=== PATIENT | male | born 1965 | race Caucasian/White ===

== ENCOUNTER 2024-12-02 12:09 | Emergency (ER) | payer BC ==
--- OUTSIDE RECORDS SUMMARY | 2024-12-02 12:15 | XMS REPORT | Continuity of Care Document ---
Author Name Unknown Address [address] [facility] [place] [address] [facility] Address [address] [facility] [place] [address] Care Team Providers Care Online Communications Manager Name Role Phone DUSTIN ELIZALDE Primary Care Physician UnavailTUSHAR Barboza Attending Clinician UnavailMEI Valiente Attending Clinician Unavailmax Cat MD, Gustabo Palafox Attending Clinician Mei Leyva MD Attending Clinician [phone] Tushar Reeder MD Attending Clinician [phone] Israel Chambers MD Attending Clinician [phone] Pcp-Lab Attending Clinician Unavailable Magaly Rees MD Attending Clinician [phone] MAGALY REES Attending Clinician Unavailab samuel Doctor Unassigned, [place] Attending Clinician U navailable Pcp-Lab Attending Clinician Unavailable Tushar Reeder MD Attending Clinician [phone] GLO GOMEZ Attending Clinician UnavailYamil Dailey Attending Clinician UnavailGlo Justin MD Attending Clinician [phone] Misty Perez DPM Attending Clinician + MISTY PEREZ Attending Clinician Unava ilable Pathology Attending Clinician Unavailable PATHOLOGY Attending Clinician Unavailable HAILY MCKINLEY Attending Clinician Unavailable Haily Mckinley MD Attending Clinician Dustin Elizalde MD Attending Clinician Earl ADAMS, Erika Meza Attending Clinician ERIKA NICOLE Attending Clinician Unavail able Unknown, Attending Attending Clinician Unavailab Charisma Harrison MD Attending Clinician [phone] CHARISMA POZO Attending Clinician Unavailable MISHA GALDAMEZ Attending Clinician Un available TUSHAR REEDER Admitting Clinician Unavailab HAILY Giang Admitting Clinician Unavailable AMY ALMARAZ Admitting Clinician Unavailable Payers Payer Name Policy Type Policy Number Effective Date Expirati on Date Source [facility] [employer] [id number] 2017 00:00:00 Problems Condition Name Condition Details Condition Category Status Onset Date Resolution Date Last Treatment Date Treating Clinician Comments Source Alcoholic cirrhosis of liver without ascites Alcoholic cirrhosis of liver without ascites Disease Active 2021-08 00:00: 00 [facility] Hypertensi on, unspecifie d type Hypertensi on, unspecifie d type Disease Active 2020-08 00:00: 00 [facility] Anemia, unspecifie d type Anemia, unspecifie d type Disease Active 2020-08 00:00: 00 [facility] Primary hypertensi on Primary hypertensi on Disease Active 2020-08 00:00: 00 [facility] ACUTE ANEMIA, BULMARO (ACUTE KIDNEY INJURY) ACUTE ANEMIA, BULMARO (ACUTE KIDNEY INJURY) Active 04/12/2021 [facility] Diagnosis Active 04-12 00:00: 00 2021-05-05 21:54:00 Jill Villegas LOW HEMOGLOBIN LOW HEMOGLOBIN Active 04/12/2021 [facility] Diagnosis Active 04-12 00:00: 00 2021-04-12 13:43:00 Jill Villegas Anemia, unspecifie d Anemia, unspecifie d 04/21/2021 [facility] 2021-04-21 07:40:15 Jill Villegas ANEMIA, UNSPECIFIE D ANEMIA, UNSPECIFIE D Active [facility] Diagnosis Active 2021-05-05 21:54:00 Jill Villegas ACUTE KIDNEY FAILURE, UNSPECIFIE D ACUTE KIDNEY FAILURE, UNSPECIFIE D Active [facility] Active 2021-05-05 21:54:00 Jill Villegas History of cirrhosis History of cirrhosis Disease Resolve d 11-05 00:00: 00 2022-08-06 00:00:00 2022-08-06 14:56:33 [facility] Hepatic cirrhosis, unspecifie d hepatic cirrhosis type, unspecifie d whether ascites present Hepatic cirrhosis, unspecifie d hepatic cirrhosis type, unspecifie d whether ascites present Disease Resolve d 2020-08 2 00:00: 00 2021-11-05 00:00:00 2021-11-05 15:37:59 [facility] Allergies, Adverse Reactions, Alerts Allergy Name Allergy Type Status Severity Reaction(s) Onset Date Inactive Date Treating Clinician Comments Source No Known Medicati on Allergie s No Known Medicati on Allergie s Active Jill Villegas NO KNOWN ALLERGIE S Drug Class Active [facility] Social History Social Habit Start Date Stop Date Quantity Comments Source History of tobacco use 2018-07-21 00:00:00 Cigar Smoker [facility] History SDOH Alcohol Frequency [facility] History SDOH Alcohol Std Dr[facility] SDOH Alcohol Binge [facility] of Social function 2024-07-28 00:00:00 2024-07-28 00:00:00 [facility] Alcohol intake 2023-10-15 00:00:00 2023-10-15 00:00:00 3 /d [facility] Alcoholic beverage intake 2023-10-15 00:00:00 2023-10-15 00:00:00 3 /d [facility] Tobacco use and exposure 2023-07-29 00:00:00 2023-07-29 00:00:00 Smokeless tobacco non-user [facility] Exposure to SARS-CoV-2 (event) 2022-08-08 00:00:00 2022-08-18 08:49:00 Not sure [facility] Tobacco Comment 2022-08-06 00:00:00 2022-08-06 00:00:00 2 large cigars per day [facility] Alcohol Comment 2021-08-11 00:00:00 2021-08-11 00:00:00 used to drink 1-2 glasses of wine, then progressed to 3-4 glasses of bourbon [facility] Social History 2018-03-17 16:43:06 2018-03-17 16:43:06 [facility] Sex assigned at 1965 00:00:00 1965 00:00:00 [facility] Smoking Status Start Date Stop Date Source Ex-smoker 2023-07-29 00:00:00 2023-07-29 [facility] 2023-02-04 00:00:00 [facility] Medications Ordered Medication Name Filled Medication Name Start Date Stop Date Current Medication? Ordering Clinician Indication Dosage Frequency Signature (SIG) Comments Components Source PANTOPRAZOL E 40 mg EC tablet 10-12 00:00: 00 Yes [id number] 40mg TAKE 1 TABLET BY MOUTH IN THE MORNING AND IN THE EVENING [facility] ATORVASTATI N 10 mg tablet 08-17 00:00: 00 Yes [id number] TAKE 1 TABLET BY MOUTH EVERYDAY AT BEDTIME [facility] CARVEDILOL 3.125 mg tablet 2023-08 00:00: 00 Yes [id number] TAKE 1 TABLET BY MOUTH TWICE A DAY WITH MEALS [facility] codeine-gua ifenesin 10-100 mg/5 mL oral solution 2023-08 00:00: 00 08-19 05:59 :00 No 5mL Take 5 mL by mouth every 6 (six) hours as needed for Cough for up to 7 days. Indication s: cough [facility] pantoprazol e 40 mg EC tablet 2024-1 2-13 00:00: 00 10-12 00:00 :00 No [id number] 40mg Take 1 tablet by mouth in the morning. [facility] SPIRONOLACT ONE 25 mg tablet 8-13 00:00: 00 Yes [id number] TAKE 1/2 TABLET BY MOUTH IN THE MORNING [facility] atorvastati n 10 mg tablet 6-04 00:00: 00 08-17 00:00 :00 No [id number] TAKE 1 TABLET BY MOUTH EVERYDAY AT BEDTIME [facility] CARVEDILOL 3.125 mg tablet 6- 00:00: 00 08-15 00:00 :00 No [id number] TAKE 1 TABLET BY MOUTH TWICE A DAY WITH MEALS [facility] SPIRONOLACT ONE 25 mg tablet 4-05 00:00: 00 03-28 00:00 :00 No [id number] TAKE 1/2 TABLET BY MOUTH IN THE MORNING [facility] erythromyci n 5 mg/gram (0.5 %) ophthalmic ointment 3- 00:00: 00 01-27 00:00 :00 No [id number] 9102 .5[in_u s] Place 0.5 Inches in right eye 4 (four) times daily. [facility] pantoprazol e 40 mg EC tablet 2-15 00:00: 00 07-28 00:00 :00 No [id number] 40mg Take 1 tablet by mouth in the morning and 1 tablet in the evening. [facility] methylPREDN ISolone (MEDROL, JOSE LUIS,) 4 mg tablets 2022-08 00:00: 00 01-27 00:00 :00 No [id number] Take by mouth SEE-INSTRU CTIONS. follow package directions [facility] CARVEDILOL 3.125 mg tablet 2022-08 1- 00:00: 00 01-16 00:00 :00 No [id number] TAKE 1 TABLET BY MOUTH TWICE A DAY WITH MEALS [facility] SPIRONOLACT ONE 25 mg tablet 2022-08 00:00: 00 11-18 00:00 :00 No [id number] TAKE 1/2 TABLET BY MOUTH IN THE MORNING [facility] ciclopirox 8 % solution 02-05 00:00: 00 01-27 00:00 :00 No [id number] Apply to fungal toenails once daily. Every 7 days please file toenails with nail file and apply rubbing alcohol. [facility] SPIRONOLACT ONE 25 mg tablet 02-01 00:00: 00 06-14 00:00 :00 No [id number] TAKE 1/2 TABLET BY MOUTH IN THE MORNING [facility] atorvastati n 10 mg tablet 01-05 00:00: 00 01-17 00:00 :00 No [id number] TAKE 1 TABLET BY MOUTH EVERYDAY AT BEDTIME [facility] CARVEDILOL 3.125 mg tablet 01-05 00:00: 00 07-14 00:00 :00 No [id number] TAKE 1 TABLET BY MOUTH TWICE A DAY WITH MEALS [facility] methylPREDN ISolone (MEDROL, JOSE LUIS,) 4 mg tablets 2021-08 00:00: 00 02-04 00:00 :00 No [id number] Take by mouth SEE-INSTRU CTIONS. follow package directions [facility] spironolact one 25 mg tablet 2021-08 00:00: 00 02-01 00:00 :00 No [id number] 12.5mg Take 0.5 tablets by mouth in the morning. [facility] ATORVASTATI N 10 mg tablet 2021-08 00:00: 00 01-05 00:00 :00 No [id number] TAKE 1 TABLET BY MOUTH EVERYDAY AT BEDTIME [facility] CARVEDILOL 3.125 mg tablet 2021-08 00:00: 00 01-05 00:00 :00 No [id number] TAKE 1 TABLET BY MOUTH TWICE A DAY WITH MEALS [facility] spironolact one 25 mg tablet 9- 00:00: 00 08-06 00:00 :00 No [id number] 9100 12.5mg Take 0.5 tablets by mouth in the morning. [facility] carvediloL (COREG) 3.125 mg tablet 12-04 00:00: 00 06-22 00:00 :00 No [id number] 3.125mg Take 1 tablet by mouth 2 (two) times daily with meals. [facility] atorvastati n 10 mg tablet 12-04 00:00: 00 06-22 00:00 :00 No [id number] 10mg Take 1 tablet by mouth at bedtime. [facility] ferrous sulfate (IRON) 325 mg (65 mg iron) tablet 08-23 00:00: 00 11-05 00:00 :00 No [id number] 325mg Take 1 tablet by mouth every Wednesday, and Wednesday. [facility] ferrous sulfate (IRON) 325 mg (65 mg iron) tablet 2020-08 2 00:00: 00 Yes [id number] 325mg Take 1 tablet by mouth every Wednesday, and Wednesday. [facility] pantoprazol e 40 mg EC tablet 2020-08 0-27 00:00: 00 09-30 00:00 :00 No [id number] 40mg Take 40 mg by mouth 2 (two) times daily. [facility] atorvastati n 10 mg tablet 2020-08 0-02 00:00: 00 12-04 00:00 :00 No [id number] 10mg Take 10 mg by mouth daily. [facility] carvedilol 3.13 MG Oral Tablet [Coreg] 04-15 18:24: 00 Yes 3.125 mg = 1 tab, PO, BID, # 60 tab, 0 Refill(s) Jill Villegas Ciprofloxac in 250 MG Oral Tablet [Cipro] 04-15 18:23: 00 No 250 mg = 1 tab, PO, Q12H, X 5 day, # 10 tab, 0 Refill(s) Finnkandace mo Villegas pantoprazol e 40 mg oral enteric coated tablet 04-15 18:22: 00 Yes 40 mg = 1 tab, PO, BID, # 60 tab, 1 Refill(s) Finnkandace mo Villegas carvedilol 04-14 02:00: 00 No Notes: Give with food. (Same As: Coreg) Jill Villegas Lipitor 04-14 02:00: 00 No Notes: (Same As: Lipitor) Jill Villegas Oxymetazoli ne hydrochlori de 0.5 MG/ML Nasal [place] [Afrin] 04-13 21:14: 00 No Notes: (Same as: Afrin) Jill Villegas Sodium Chloride 0.9% IV 1000 mL 04-13 17:57: 00 No 1,000 mL, Rate: 75 ml/hr, Infuse over: 13.3 hr, Route: IV, Dosing Weight 82.869 kg, Total Volume: 1,000, Start date: 04/13/21 12:57:00 CDT, Duration: 30 day, Stop date: 05/13/21 12:56:00 CDT, BSA: 2.01 m2 Finnkandace mo Villegas pantoprazol e 04-13 17:37: 00 No Notes: Tablet should not be chewed or crushed. (Same as: Protonix) Jill Villegas Thiamine 04-13 14:00: 00 No Notes: (Same As: Vitamin B1) Jill Villegas Folic Acid 04-13 14:00: 00 No Notes: (Same as: Folvite) Jill Villegas vancomycin + Sodium Chloride 0.9% IV 500 mL 04-13 09:00: 00 No 2001 mg: infuse over 2.5 hours For adult patients only: Round to nearest 250 mg per Medical Staff approval MEDICATION WASTE Product Size: 1000 mg Product Wasted: ___ mg Jill Villegas cefepime 04-13 04:00: 00 No Notes: (Same As: Maxipime) MEDICATION WASTE Product Size: 1000 mg Product Wasted: ___ mg Jill Villegas Vancomycin 04-13 04:00: 00 No 1,500 mg, Route: IVPB, Drug form: INJ, DTOS13G, Dosing Weight 82.869, kg, Start date: 04/12/21 23:00:00 CDT, Duration: 5 day, Stop date: 04/17/21 11:00:00 CDT, ABX Indication : ED - Suspected Sepsis Jill Villegas Vancomycin 04-13 03:26: 20 No Notes: Vancomycin Pharmacy Dosing Protocol PHARMAC Y USE ONLY Note: This is not a medication order. This is a consultati on order. Jill Villegas Tylenol 04-13 03:09: 00 No Notes: Max acetaminop hen = 4000mg/day (4 gm/day). (Same as: Tylenol) Jill Villegas metoprolol succinate 25 mg oral capsule, extended release 04-13 00:40: 00 No 25 mg = 1 cap, PO, Daily, 0 Refill(s) Jill Villegas Docusate 04-12 22:00: 00 No Notes: (Same as: Colace) (Do Not Crush) Jill Villegas normal saline 0.9% IV 1,000 mL 04-12 20:48: 00 No 1,000 mL, Rate: 55 ml/hr, Infuse over: 18.2 hr, Route: IV, Dosing Weight 79.545 kg, Total Volume: 1,000, Start date: 04/12/21 15:48:00 CDT, Duration: 30 day, Stop date: 05/12/21 15:47:00 CDT, BSA: 1.99 m2, 0 Jill Villegas Dextrose 50% Syringe (D50W) 04-12 20:45: 00 No 12.5 gm, 25 mL, Route: IVP, Drug Form: INJ, Dosing Weight 79.545, kg, PRN, PRN Blood Glucose Results, Start date: 04/12/21 15:45:00 CDT, Duration: 30 day, Stop date: 05/12/21 15:44:00 CDT, 0 Jill Villegas Glucagon 04-12 20:45: 00 No 1 mg, Route: IM, Drug form: PDR/INJ, PRN, Dosing Weight 79.545, kg, PRN Blood Glucose Results, Start date: 04/12/21 15:45:00 CDT, Duration: 30 day, Stop date: 05/12/21 15:44:00 CDT, 0 Jill Villegas Ondansetron 04-12 20:45: 00 No Notes: (Same as: Zofran) MEDICATION WASTE Product Size: 4 mg Product Wasted: ___ mg Jill Villegas Melatonin 04-12 20:45: 00 No Notes: (Same as: Melatonin) Jill Villegas Potassium Chloride 04-12 20:45: 00 No Notes: (Same as: K-Dur 20) "Do Not Crush" Give with food and full glass of water For patients unable to swallow tablet, dissolve in one half glass of water. Allow about 2 minutes for the tablets to disintegra te. Stir before giving to prepare slurry and administer . Please exclude Patient s with feeding tube less than 14 [place] (Dobhoff, J-tube etc) and pediatric and patients. Jill Villegas potassium phosphate-s odium phosphate 250 mg-280 mg-160 mg oral powder for reconstitut ion 04-12 20:45: 00 No Notes: (Same as: Phos-NaK) Each 1.5 gm pkt has 250mg phosphorou s. Mix w/2.5oz water and stir. Memkandace hassan [place] potassium phosphate 04-12 20:45: 00 No Notes: (Same as: K Phosphate. ) Do not infuse phosphorou s concurrent ly in the same line as TPN or IVF that contains calcium. For double lumen central lines, phosphorou s may be infused in a separate lumen from TPN. 1 mMol phoshate has 1.47 mEq potassium Infuse over 4 hours Memkandace mo Bakari sodium phosphate 04-12 20:45: 00 No Notes: Infuse over 4 hour. Do not infuse phosphorou s concurrent ly in the same line as TPN or IVF that contains calcium. For double lumen central lines, phosphorou s may be infused in a separate lumen from TPN. Finnkandace Villegas Magnesium Sulfate 04-12 20:45: 00 No Notes: WASTE: F/P - Sink; E - Municipal Trash Bin Jill Villegas Magnesium Oxide 04-12 20:45: 00 No Notes: (Same as: Mag-Ox 400) Magnesium oxide [id number] g elemental magnesium Dose=____m g magnesium oxide (___mg elemental magnesium) Jill Villegas Calcium Gluconate 04-12 20:45: 00 No Notes: WASTE: F/P - Sink; E - Municipal Trash Bin Jill Villegas Sodium Chloride 0.9% (titrate) 250 mL 04-12 19:23: 00 No 250 mL, Rate: To prime line and flush remaining blood products., Dosing Weight 79.545, kg, Route: IV, Total Volume: 250, Start Date: 04/12/21 14:23:00 CDT, Duration: 1 day, Stop date: 04/13/21 14:22:00 CDT, Replace Every: 24 hr, 0 Jill Villegas carvediloL (COREG) 3.125 mg tablet 03-22 00:00: 00 Yes [id number] [facility] Hydrochloro thiazide 25 MG Oral Tablet 03-31 15:53: 00 Yes 25 mg = 1 tab, PO, Daily, # 30 tab, 1 Refill(s) Jill Villegas atorvastati n 10 MG Oral Tablet [Lipitor] 03-31 15:49: 00 Yes 10 mg = 1 tab, PO, Bedtime, # 90 tab, 0 Refill(s) Jill Villegas Hydrocortis one 0.025 MG/MG Topical Ointment 03-17 14:49: 00 No 1 appl, TOP, TID, X 14 day, # 60 gm, 1 Refill(s) Jill Villegas Vitamin D3 10,000 intl units oral capsule 03-17 14:19: 00 Yes 10,000 IntlUnit = 1 cap, PO, 0 Refill(s) Jill Villegas Claritin 03-17 14:19: 00 Yes 10 mg = 1 tab, PO, Daily, PRN Itching / rash / allergy symptoms, # 14 tab, 0 Refill(s) Jill Villegas Prilosec 03-17 14:19: 00 Yes PO, Daily, 0 Refill(s) Jill Villegas Aspirin 81 MG Enteric Coated Tablet 03-17 14:19: 00 Yes 81 mg = 1 tab, PO, Daily, # 90 tab, 3 Refill(s) Jill Villegas hydrocortis one 2.5 % cream 2015-08 00:00: 00 02-04 00:00 :00 No [facility] Immunizations Ordered Immunization Name Filled Immunization Name Date Status Comments Source Flu Injectable MDCK Pres-Free (FLUCELVAX) 2024-07-28 00:00:00 Completed [facility] Influenza Virus Vaccine Quad IM, Preserv and ABX Free 6 MO-64 YRS (FLUCELVAX) 2023-07-29 00:00:00 Completed [facility] Zoster Vaccine Recombinant 2023-02-04 00:00:00 Completed [facility] Zoster Vaccine Recombinant 2023-02-04 00:00:00 Completed [facility] Zoster Vaccine Recombinant 2023-02-04 00:00:00 Completed [facility] Zoster Vaccine Recombinant 2022-08-06 00:00:00 Completed [facility] Zoster Vaccine Recombinant 2022-08-06 00:00:00 Completed [facility] Zoster Vaccine Recombinant 2022-08-06 00:00:00 Completed [facility] Zoster Vaccine Recombinant 2022-08-06 00:00:00 Completed [facility] Zoster Vaccine Recombinant 2022-08-06 00:00:00 Completed [facility] Zoster Vaccine Recombinant 2022-08-06 00:00:00 Completed [facility] Zoster Vaccine Recombinant 2022-08-06 00:00:00 Completed [facility] Zoster Vaccine Recombinant 2022-08-06 00:00:00 Completed [facility] Zoster Vaccine Recombinant 2022-08-06 00:00:00 Completed [facility] Pneumococcal 20 Conjugate, PCV20 (Prevnar 20) 2022-05-06 00:00:00 Completed [facility] Influenza Virus Vaccine Quad IM, Preserv and ABX Free 6 MO-64 YRS 2022-05-06 00:00:00 Completed [facility] Pneumococcal 20 Conjugate, PCV20 (Prevnar 20) 2022-05-06 00:00:00 Completed [facility] Influenza Virus Vaccine Quad IM, Preserv and ABX Free 6 MO-64 YRS 2022-05-06 00:00:00 Completed [facility] Pneumococcal 20 Conjugate, PCV20 (Prevnar 20) 2022-05-06 00:00:00 Completed [facility] Influenza Virus Vaccine Quad IM, Preserv and ABX Free 6 MO-64 YRS 2022-05-06 00:00:00 Completed [facility] Pneumococcal 20 Conjugate, PCV20 (Prevnar 20) 2022-05-06 00:00:00 Completed [facility] Influenza Virus Vaccine Quad IM, Preserv and ABX Free 6 MO-64 YRS 2022-05-06 00:00:00 Completed [facility] Pneumococcal 20 Conjugate, PCV20 (Prevnar 20) 2022-05-06 00:00:00 Completed [facility] Influenza Virus Vaccine Quad IM, Preserv and ABX Free 6 MO-64 YRS 2022-05-06 00:00:00 Completed [facility] Pneumococcal 20 Conjugate, PCV20 (Prevnar 20) 2022-05-06 00:00:00 Completed [facility] Influenza Virus Vaccine Quad IM, Preserv and ABX Free 6 MO-64 YRS 2022-05-06 00:00:00 Completed [facility] Pneumococcal 20 Conjugate, PCV20 (Prevnar 20) 2022-05-06 00:00:00 Completed [facility] Influenza Virus Vaccine Quad IM, Preserv and ABX Free 6 MO-64 YRS 2022-05-06 00:00:00 Completed [facility] Pneumococcal 20 Conjugate, PCV20 (Prevnar 20) 2022-05-06 00:00:00 Completed [facility] Influenza Virus Vaccine Quad IM, Preserv and ABX Free 6 MO-64 YRS 2022-05-06 00:00:00 Completed [facility] Pneumococcal 20 Conjugate, PCV20 (Prevnar 20) 2022-05-06 00:00:00 Completed [facility] Influenza Virus Vaccine Quad IM, Preserv and ABX Free 6 MO-64 YRS 2022-05-06 00:00:00 Completed [facility] Pneumococcal 20 Conjugate, PCV20 (Prevnar 20) 2022-05-06 00:00:00 Completed [facility] Influenza Virus Vaccine Quad IM, Preserv and ABX Free 6 MO-64 YRS 2022-05-06 00:00:00 Completed [facility] Pneumococcal 20 Conjugate, PCV20 (Prevnar 20) 2022-05-06 00:00:00 Completed [facility] Influenza Virus Vaccine Quad IM, Preserv and ABX Free 6 MO-64 YRS 2022-05-06 00:00:00 Completed [facility] Pneumococcal 20 Conjugate, PCV20 (Prevnar 20) 2022-05-06 00:00:00 Completed Influenza Virus Vaccine Quad IM, Preserv and ABX Free 6 MO-64 YRS (FLUCELVAX) 2022-05-06 00:00:00 Completed TDAP 2021-08-11 00:00:00 Completed [facility] TDAP 2021-08-11 00:00:00 Completed [facility] TDAP 2021-08-11 00:00:00 Completed [facility] TDAP 2021-08-11 00:00:00 Completed [facility] TDAP 2021-08-11 00:00:00 Completed [facility] TDAP 2021-08-11 00:00:00 Completed [facility] TDAP 2021-08-11 00:00:00 Completed [facility] TDAP 2021-08-11 00:00:00 Completed [facility] TDAP 2021-08-11 00:00:00 Completed [facility] TDAP 2021-08-11 00:00:00 Completed [facility] TDAP 2021-08-11 00:00:00 Completed [facility] TDAP 2021-08-11 00:00:00 Completed [facility] TDAP 2021-08-11 00:00:00 Completed [facility] TDAP 2021-08-11 00:00:00 Completed [facility] TDAP 2021-08-11 00:00:00 Completed [facility] TDAP 2021-08-11 00:00:00 Completed [facility] TDAP 2021-08-11 00:00:00 [facility]pleted [facility] [facility] TDAP 2021-08-11 00:00:00 Completed [facility] TDAP 2021-08-11 00:00:00 Completed [facility] Influenza Virus Vaccine 2021-06-17 00:00:00 Completed [facility] Influenza Virus Vaccine 2021-06-17 00:00:00 Completed [facility] Influenza Virus Vaccine 2021-06-17 00:00:00 Completed [facility] Influenza Virus Vaccine 2021-06-17 00:00:00 Completed [facility] Influenza Virus Vaccine 2021-06-17 00:00:00 Completed [facility] Influenza Virus Vaccine 2021-06-17 00:00:00 Completed [facility] Influenza Virus Vaccine 2021-06-17 00:00:00 Completed [facility] Influenza Virus Vaccine 2021-06-17 00:00:00 Completed [facility] Influenza Virus Vaccine 2021-06-17 00:00:00 Completed [facility] Influenza Virus Vaccine 2021-06-17 00:00:00 Completed [facility] Influenza Virus Vaccine 2021-06-17 00:00:00 Completed [facility] Influenza Virus Vaccine 2021-06-17 00:00:00 Completed [facility] Influenza Virus Vaccine 2021-06-17 00:00:00 Completed [facility] Influenza Virus Vaccine 2021-06-17 00:00:00 Completed [facility] Influenza Virus Vaccine 2021-06-17 00:00:00 Completed [facility] Influenza Virus Vaccine 2021-06-17 00:00:00 Completed [facility] Influenza Virus Vaccine 2021-06-17 00:00:00 Completed [facility] Influenza Virus Vaccine 2021-06-17 00:00:00 Completed [facility] Influenza Virus Vaccine 2021-06-17 00:00:00 Completed [facility] Influenza Virus Vaccine Unknown Completed [facility] TDAP Unknown Completed [facility] Pneumococcal 20 Conjugate, PCV20 (Prevnar 20) Unknown Completed [facility] Influenza Virus Vaccine Quad IM, Preserv and ABX Free 6 MO-64 YRS (FLUCELVAX) Unknown Completed [facility] Zoster Vaccine Recombinant Unknown Completed [facility] Influenza Virus Vaccine Unknown Completed [facility] TDAP Unknown Completed [facility] Pneumococcal 20 Conjugate, PCV20 (Prevnar 20) Unknown Completed [facility] Influenza Virus Vaccine Quad IM, Preserv and ABX Free 6 MO-64 YRS (FLUCELVAX) Unknown Completed [facility] Zoster Vaccine Recombinant Unknown Completed [facility] Influenza Virus Vaccine Unknown Completed [facility] TDAP Unknown Completed [facility] Pneumococcal 20 Conjugate, PCV20 (Prevnar 20) Unknown Completed [facility] Influenza Virus Vaccine Quad IM, Preserv and ABX Free 6 MO-64 YRS (FLUCELVAX) Unknown Completed [facility] Zoster Vaccine Recombinant Unknown Completed [facility] Influenza Virus Vaccine Unknown Completed [facility] TDAP Unknown Completed [facility] Pneumococcal 20 Conjugate, PCV20 (Prevnar 20) Unknown Completed [facility] Influenza Virus Vaccine Quad IM, Preserv and ABX Free 6 MO-64 YRS (FLUCELVAX) Unknown Completed [facility] Influenza Virus Vaccine Unknown Completed [facility] TDAP Unknown Completed [facility] Pneumococcal 20 Conjugate, PCV20 (Prevnar 20) Unknown Completed [facility] Influenza Virus Vaccine Quad IM, Preserv and ABX Free 6 MO-64 YRS (FLUCELVAX) Unknown Completed [facility] Zoster Vaccine Recombinant Unknown Completed [facility] Influenza Virus Vaccine Unknown Completed [facility] TDAP Unknown Completed [facility] Pneumococcal 20 Conjugate, PCV20 (Prevnar 20) Unknown Completed [facility] Influenza Virus Vaccine Quad IM, Preserv and ABX Free 6 MO-64 YRS (FLUCELVAX) Unknown Completed [facility] Zoster Vaccine Recombinant Unknown Completed [facility] Influenza Virus Vaccine Unknown Completed [facility] TDAP Unknown Completed [facility] Pneumococcal 20 Conjugate, PCV20 (Prevnar 20) Unknown Completed [facility] Influenza Virus Vaccine Quad IM, Preserv and ABX Free 6 MO-64 YRS (FLUCELVAX) Unknown Completed [facility] Zoster Vaccine Recombinant Unknown Completed [facility] Influenza Virus Vaccine Unknown Completed [facility] TDAP Unknown Completed [facility] Pneumococcal 20 Conjugate, PCV20 (Prevnar 20) Unknown Completed [facility] Influenza Virus Vaccine Quad IM, Preserv and ABX Free 6 MO-64 YRS (FLUCELVAX) Unknown Completed [facility] Zoster Vaccine Recombinant Unknown Completed [facility] Influenza Virus Vaccine Unknown Completed [facility] TDAP Unknown Completed [facility] Pneumococcal 20 Conjugate, PCV20 (Prevnar 20) Unknown Completed [facility] Influenza Virus Vaccine Quad IM, Preserv and ABX Free 6 MO-64 YRS (FLUCELVAX) Unknown Completed [facility] Zoster Vaccine Recombinant Unknown Completed [facility] Influenza Virus Vaccine Unknown Completed [facility] TDAP Unknown Completed [facility] Pneumococcal 20 Conjugate, PCV20 (Prevnar 20) Unknown Completed [facility] Influenza Virus Vaccine Quad IM, Preserv and ABX Free 6 MO-64 YRS (FLUCELVAX) Unknown Completed [facility] Zoster Vaccine Recombinant Unknown Completed [facility] Influenza Virus Vaccine Unknown Completed [facility] TDAP Unknown Completed [facility] Pneumococcal 20 Conjugate, PCV20 (Prevnar 20) Unknown Completed [facility] Influenza Virus Vaccine Quad IM, Preserv and ABX Free 6 MO-64 YRS (FLUCELVAX) Unknown Completed [facility] Zoster Vaccine Recombinant Unknown Completed [facility] Influenza Virus Vaccine Unknown Completed [facility] TDAP Unknown Completed [facility] Pneumococcal 20 Conjugate, PCV20 (Prevnar 20) Unknown Completed [facility] Influenza Virus Vaccine Quad IM, Preserv and ABX Free 6 MO-64 YRS (FLUCELVAX) Unknown Completed [facility] Zoster Vaccine Recombinant Unknown Completed [facility] Influenza Virus Vaccine Unknown Completed [facility] TDAP Unknown Completed [facility] Pneumococcal 20 Conjugate, PCV20 (Prevnar 20) Unknown Completed [facility] Influenza Virus Vaccine Quad IM, Preserv and ABX Free 6 MO-64 YRS (FLUCELVAX) Unknown Completed [facility] Zoster Vaccine Recombinant Unknown Completed [facility] Influenza Virus Vaccine Unknown Completed [facility] TDAP Unknown Completed [facility] Pneumococcal 20 Conjugate, PCV20 (Prevnar 20) Unknown Completed [facility] Influenza Virus Vaccine Quad IM, Preserv and ABX Free 6 MO-64 YRS (FLUCELVAX) Unknown Completed [facility] Zoster Vaccine Recombinant Unknown Completed [facility] Influenza Virus Vaccine Unknown Completed [facility] TDAP Unknown Completed [facility] Pneumococcal 20 Conjugate, PCV20 (Prevnar 20) Unknown Completed [facility] Influenza Virus Vaccine Quad IM, Preserv and ABX Free 6 MO-64 YRS (FLUCELVAX) Unknown Completed [facility] Zoster Vaccine Recombinant Unknown Completed [facility] Influenza Virus Vaccine Unknown Completed [facility] TDAP Unknown Completed [facility] Pneumococcal 20 Conjugate, PCV20 (Prevnar 20) Unknown Completed [facility] Influenza Virus Vaccine Quad IM, Preserv and ABX Free 6 MO-64 YRS (FLUCELVAX) Unknown Completed [facility] Zoster Vaccine Recombinant Unknown Completed [facility] Influenza Virus Vaccine Unknown Completed [facility] TDAP Unknown Completed [facility] Pneumococcal 20 Conjugate, PCV20 (Prevnar 20) Unknown Completed [facility] Influenza Virus Vaccine Quad IM, Preserv and ABX Free 6 MO-64 YRS (FLUCELVAX) Unknown Completed [facility] Zoster Vaccine Recombinant Unknown Completed [facility] Influenza Virus Vaccine Unknown Completed [facility] TDAP Unknown Completed [facility] Pneumococcal 20 Conjugate, PCV20 (Prevnar 20) Unknown Completed [facility] Influenza Virus Vaccine Quad IM, Preserv and ABX Free 6 MO-64 YRS (FLUCELVAX) Unknown Completed [facility] Zoster Vaccine Recombinant Unknown Completed [facility] Influenza Virus Vaccine Unknown Completed [facility] TDAP Unknown Completed [facility] Pneumococcal 20 Conjugate, PCV20 (Prevnar 20) Unknown Completed [facility] Influenza Virus Vaccine Quad IM, Preserv and ABX Free 6 MO-64 YRS (FLUCELVAX) Unknown Completed [facility] Zoster Vaccine Recombinant Unknown Completed [facility] Influenza Virus Vaccine Unknown Completed [facility] TDAP Unknown Completed [facility] Pneumococcal 20 Conjugate, PCV20 (Prevnar 20) Unknown Completed [facility] Influenza Virus Vaccine Quad IM, Preserv and ABX Free 6 MO-64 YRS (FLUCELVAX) Unknown Completed [facility] Zoster Vaccine Recombinant Unknown Completed [facility] Influenza Virus Vaccine Unknown Completed [facility] TDAP Unknown Completed [facility] Pneumococcal 20 Conjugate, PCV20 (Prevnar 20) Unknown Completed [facility] Influenza Virus Vaccine Quad IM, Preserv and ABX Free 6 MO-64 YRS (FLUCELVAX) Unknown Completed [facility] Zoster Vaccine Recombinant Unknown Completed [facility] Influenza Virus Vaccine Unknown Completed [facility] TDAP Unknown Completed [facility] Pneumococcal 20 Conjugate, PCV20 (Prevnar 20) Unknown Completed [facility] Influenza Virus Vaccine Quad IM, Preserv and ABX Free 6 MO-64 YRS (FLUCELVAX) Unknown Completed [facility] Zoster Vaccine Recombinant Unknown Completed [facility] Vital Signs Vital Name Observation Time Observation Value Comments S ource Systolic blood pressure 2024-11-24 21:01:00 117 mm[Hg] [facility] Diastolic blood pressure 2024-11-24 21:01:00 74 mm[Hg] [facility] Heart rate 2024-11-24 21:00:00 71 /min [facility] Body temperature 2024-11-24 21:00:00 36.5 Ivania [facility] Body height 2024-11-24 21:00:[address] [facility] Body weight 2024-11-24 21:00:[address] [facility] BMI 2024-11-24 21:00:00 28.59 kg/m2 [facility] Oxygen saturation in Arterial blood by Pulse oximetry 2024-11-24 21:00:00 95 /min [facility] Systolic blood pressure 2024-08-11 17:03:00 105 mm[Hg] [facility] Diastolic blood pressure 2024-08-11 17:03:00 67 mm[Hg] [facility] Heart rate 2024-08-11 17:03:00 78 [facility] Body temperature 2024-08-11 17:03:00 37.28 Ivania [facility] Body height 2024-08-11 17:03:[address] [facility] Body weight 2024-08-11 17:03:[address] [facility] BMI 2024-08-11 17:03:00 27.37 kg/m2 [facility] Oxygen saturation in Arterial blood by Pulse oximetry 2024-08-11 17:03:00 94 /min [facility] Systolic blood pressure 2024-07-28 15:33:00 126 mm[Hg] [facility] Diastolic blood pressure 2024-07-28 15:33:00 63 mm[Hg] [facility] Heart rate 2024-07-28 15:32:00 70 /min [facility] Body temperature 2024-07-28 15:32:00 36.39 Ivania [facility] Body height 2024-07-28 15:32:[address] [facility] Body weight 2024-07-28 15:32:[address] [facility] BMI 2024-07-28 15:32:00 28.13 kg/m2 [facility] Oxygen saturation in Arterial blood by Pulse oximetry 2024-07-28 15:32:00 97 /min [facility] Systolic blood pressure 2024-01-28 15:05:00 111 mm[Hg] [facility] Diastolic blood pressure 2024-01-28 15:05:00 55 mm[Hg] [facility] Heart rate 2024-01-28 15:05:00 62 /min [facility] Body temperature 2024-01-28 15:05:00 36.39 Ivania [facility] Body height 2024-01-28 15:05:00 172.7 cm [facility] Body weight 2024-01-28 15:05:[address] [facility] BMI 2024-01-28 15:05:00 26.46 kg/m2 [facility] Oxygen saturation in Arterial blood by Pulse oximetry 2024-01-28 15:05:00 96 /min [facility] Systolic blood pressure 2023-10-15 19:03:00 133 mm[Hg] [facility] Diastolic blood pressure 2023-10-15 19:03:00 63 mm[Hg] [facility] Heart rate 2023-10-15 19:03:00 63 /[facility] 2023-10-15 19:03:00 36.56 Ivania [facility] Respiratory rate 2023-10-15 19:03:00 16 /min [facility] Body height 2023-10-15 19:03:00 172.7 cm [facility] Body weight 2023-10-15 19:03:00 83.462 kg [facility] BMI 2023-10-15 19:03:00 27.98 kg/m2 [facility] Oxygen saturation in Arterial blood by Pulse oximetry 2023-10-15 19:03:00 100 /min Room air [facility] Systolic blood pressure 2023-07-29 16:42:00 117 mm[Hg] [facility] Diastolic blood pressure 2023-07-29 16:42:00 63 mm[Hg] [facility] Heart rate 2023-07-29 16:42:00 70 /min [facility] Body height 2023-07-29 16:42:00 172.7 cm [facility] Body weight 2023-07-29 16:42:[address] [facility] BMI 2023-07-29 16:42:00 27.22 kg/m2 [facility] Oxygen saturation in Arterial blood by Pulse oximetry 2023-07-29 16:42:00 100 /min [facility] Body temperature 2023-05-14 17:07:00 36.83 Ivania [facility] Body height 2023-05-14 17:07:00 [facility]7 [facility] Body weight 2023-05-14 17:07:00 80.74 kg [facility] BMI 2023-05-14 17:07:00 27.06 kg/m2 [facility] Body temperature 2023-02-05 14:58:00 37.22 Ivania [facility] Body weight 2023-02-05 14:58:00 76.522 kg [facility] BMI 2023-02-05 14:58:00 25.65 kg/m2 [facility] Systolic blood pressure 2023-02-04 16:37:00 125 mm[Hg] [facility] Diastolic blood pressure 2023-02-04 16:37:00 65 mm[Hg] [facility] Heart rate 2023-02-04 16:36:00 70 /min [facility] Body temperature 2023-02-04 16:36:00 36.44 Ivania [facility] Respiratory rate 2023-02-04 16:36:00 18 /min [facility] Body height 2023-02-04 16:36:00 172.7 cm [facility] Body weight 2023-02-04 16:36:[address] [facility] BMI 2023-02-04 16:36:00 25.54 kg/m2 [facility] Oxygen saturation in Arterial blood by Pulse oximetry 2023-02-04 16:36:00 100 /min room air [facility] Systolic blood pressure 2022-08-06 20:48:00 138 mm[Hg] [facility] Diastolic blood pressure 2022-08-06 20:48:00 77 mm[Hg] [facility] Heart rate 2022-08-06 20:48:00 71 /[facility] Body temperature 2022-08-06 20:48:00 36.72 Ivania [facility] Respiratory rate 2022-08-06 20:48:00 18 /min [facility] Body height 2022-08-06 20:48:00 172.7 cm [facility] Body weight 2022-08-06 20:48:[address] [facility] BMI 2022-08-06 20:48:00 27.92 kg/m2 [facility] Oxygen saturation in Arterial blood by Pulse oximetry 2022-08-06 20:48:00 98 /min room air [facility] Systolic blood pressure 2022-05-06 20:24:00 133 mm[Hg] [facility] Diastolic blood pressure 2022-05-06 20:24:00 65 mm[Hg] [facility] Heart rate 2022-05-06 20:24:00 65 /min [facility] Body temperature 2022-05-06 20:24:00 36.22 Ivania [facility] Respiratory rate 2022-05-06 20:24:00 16 /min [facility] Body height 2022-05-06 20:24:[address] [facility] Body weight 2022-05-06 20:24:[address] [facility] BMI 2022-05-06 20:24:00 26.15 kg/m2 [facility] Oxygen saturation in Arterial blood by Pulse oximetry 2022-05-06 20:24:00 99 /min [facility] Systolic blood pressure 2021-11-05 20:30:00 137 mm[Hg] [facility] Diastolic blood pressure 2021-11-05 20:30:00 75 mm[Hg] [facility] Heart rate 2021-11-05 20:28:00 69 /min [facility] Body temperature 2021-11-05 20:28:00 37.17 Ivania [facility] Respiratory rate 2021-11-05 20:28:00 20 /min [facility] Body height 2021-11-05 20:28:[address] [facility] Body weight 2021-11-05 20:28:[address] [facility] BMI 2021-11-05 20:28:00 26.18 kg/m2 [facility] Oxygen saturation in Arterial blood by Pulse oximetry 2021-11-05 20:28:00 99 /min room air [facility] Systolic blood pressure 2021-08-11 15:13:00 138 mm[Hg] [facility] Diastolic blood pressure 2021-08-11 15:13:00 81 mm[Hg] [facility] Heart rate 2021-08-11 15:13:00 77 /min [facility] Body temperature 2021-08-11 15:13:00 36.72 Ivania [facility] Respiratory rate 2021-08-11 15:13:00 18 /min [facility] Body height 2021-08-11 15:13:[address] [facility] Body weight 2021-08-11 15:13:[address] [facility] BMI 2021-08-11 15:13:00 25.38 kg/m2 [facility] Oxygen saturation in Arterial blood by Pulse oximetry 2021-08-11 15:13:00 98 /min [facility] Heart Rate 2021-04-15 16:53:15 [facility] Systolic (mm Hg) 2021-04-15 16:53:10 [facility] Diastolic (mm Hg) 2021-04-15 16:53:10 [facility] Heart Rate 2021-04-15 16:53:10 [facility] Heart Rate 2021-04-15 13:44:41 [facility] Respitory Rate 2021-04-15 13:44:41 [facility] Systolic (mm Hg) 2021-04-15 13:43:59 [facility] Diastolic (mm Hg) 2021-04-15 13:43:59 [facility] [facility] Temperature Oral (F) 2021-04-15 13:43:30 98.2 F [facility] Temperature Oral (F) 2021-04-15 10:31:00 98.9 F [facility] [place] Systolic (mm Hg) 2021-04-15 10:31:00 [facility] [place] Diastolic (mm Hg) 2021-04-15 10:31:00 [facility] Temperature Oral (F) 2021-04-15 04:36:10 100.1 F [facility] [place] Respitory Rate 2021-04-14 20:44:11 [facility] [place] Heart Rate 2021-04-14 08:50:33 [facility] Systolic (mm Hg) 2021-04-14 08:50:19 [facility] [place] Diastolic (mm Hg) 2021-04-14 08:50:19 [facility] Heart Rate 2021-04-14 08:50:19 [facility] Temperature Oral (F) 2021-04-14 08:50:09 98.4 F [facility] Temperature Oral (F) 2021-04-14 04:20:00 99.7 F [facility] [place] Temperature Oral (F) 2021-04-14 03:30:00 100.7 F [facility] [place] Heart Rate 2021-04-14 02:05:44 [facility] Systolic (mm Hg) 2021-04-14 02:05:35 [facility] Diastolic (mm Hg) 2021-04-14 02:05:35 [facility] [place] Systolic (mm Hg) 2021-04-13 20:59:59 [facility] [place] Diastolic (mm Hg) 2021-04-13 20:59:59 [facility] [place] Respitory Rate 2021-04-13 18:00:00 [facility] [place] Respitory Rate 2021-04-13 17:45:00 [facility] Respitory Rate 2021-04-13 17:30:00 [facility] [place] Height 2021-04-13 03:24:00 172.72 cm [facility] Weight 2021-04-13 03:24:00 [facility] Height 2021-04-13 01:04:00 172.72 cm [facility] [place] Weight 2021-04-13 01:04:00 [facility] BMI Calculated 2021-04-13 01:04:00 [facility] [place] Height 2021-04-12 17:23:00 177.8 cm [facility] [place] BMI Calculated 2021-04-12 17:23:00 [facility] [place] Weight 2021-04-12 17:23:00 [facility] Weight 2018-03-31 15:22:00 [facility] [place] Heart Rate 2018-03-31 15:22:00 [facility] Temperature Oral (F) 2018-03-31 15:22:00 98.9 F [facility] [place] Systolic (mm Hg) 2018-03-31 15:22:00 [facility] [place] Diastolic (mm Hg) 2018-03-31 15:22:00 [facility] [place] BMI Calculated 2018-03-17 14:13:00 [facility] [place] Height 2018-03-17 14:13:00 173.99 cm [facility] Weight 2018-03-17 14:13:00 [facility] Temperature Oral (F) 2018-03-17 14:13:00 98.0 F [facility] [place] Heart Rate 2018-03-17 14:13:00 [facility]leg[facility] Systolic (mm Hg) 2018-03-17 14:13:00 [facility] [place] Diastolic (mm Hg) 2018-03-17 14:13:00 [facility] Procedures Procedure Date / Time Performed Performing Clinician Source FLU VACC (), 6 MO-64 YRS, .5ML, IM, TIV (FLUCELVAX) 2024-07-28 16:14:50 Varinder [facility] FLU VACC (), 6 MO-64 YRS, .5ML, IM, QUAD (FLUCELVAX) 2023-07-29 16:50:59 Varinder [facility] VARICELLA-ZOSTER VACCINE, (SHINGRIX) 50 MCG/0.5 ML, IM 2023-02-04 17:07:52 Victorino Gillespie [facility] CONSENT/REFUSAL FOR DIAGNOSIS AND TREATMENT 2023-02-04 16:27:09 Doctor Unassigned, [facility] US ABDOMEN LIMITED 2022-08-18 15:35:34 Daksha Reeder [facility] VARICELLA-ZOSTER VACCINE, (SHINGRIX) 50 MCG/0.5 ML, IM 2022-08-06 20:58[facility] 2022-05-06 21:48:00 Dustin Elizalde [facility] COMP. METABOLIC PANEL (53687) 2022-05-06 21:48:00 Dustin Elizalde [facility] ALPHA FETOPROTEIN 2022-05-06 21:48:[address] [facility] CBC WITH DIFF 2022-05-06 21:48:00 Dustin Elizalde [facility] PROTHROMBIN TIME / INR 2022-05-06 21:48:00 Zohaib Elizalde [facility] FLU VACC (), 6 MO-64 YRS, .5ML, IM, QUAD (FLUCELVAX) 2022-05-06 21:10:47 Dustin Elizalde [facility] PNEUMOCOCCAL 20 CONJUGATE (PREVNAR 20) VACCINE 2022-05-06 21:10:47 Dustin Elizalde [facility] EXTERNAL PROVIDER RECORDS 2021-11-11 05:01:00 Doctor Unassigned, [facility] TDAP VACCINE, >11 YRS, IM 2021-08-11 16:46:21 Dustin Elizalde [facility] Radical mastoidectomy<sup>1</johns p> [facility] Encounters Start Date/Time End Date/Time Encounter Type Admission Type Attending [facility] Care Department Encounter ID Source 2024-11-24 16:10:00 2024-11-24 16:41:32 Outpatient R MEI LEYVA [facility] [id number] [facility] 2024-11-24 16:10:00 2024-11-24 16:41:32 Office Visit Gustabo Cat Lindsay Saloni [facility] 1.2.840.114 350.1.13.10 4.2.7.2.686 [id number] [facility] 2024-10-11 00:00:00 2024-10-12 [facility] 1.2.840.114 350.1.13.10 4.2.7.2.686 [id number] [facility] 2024-08-14 00:00:00 2024-08-17 07:40:10 [facility] 1.2.840.114 350.1.13.10 4.2.7.2.686 [id number] [facility] 2024-08-15 00:00:00 2024-08-15 08:17:58 [facility] 1.2.840.114 350.1.13.10 4.2.7.2.686 [id number] [facility] 2024-08-11 00:00:00 2024-08-14 10:15:42 Patient Secure Msg Israel Chambers [facility] 1.2.840.114 350.1.13.10 4.2.7.2.686 [id number] [facility] 2024-08-11 11:45:00 2024-08-11 12:00:00 [employer] Consultant Visit Pcp-Lab Magaly Rees Pcp-Lab [facility] 1.2.840.114 350.1.13.10 4.2.7.2.686 [id number] [facility] 2024-08-11 11:10:00 2024-08-11 11:50:17 Office Visit Israel Chambers Russell A [facility] 1.2.840.114 350.1.13.10 4.2.7.2.686 [id number] [facility] 2024-08-11 11:10:00 2024-08-11 11:50:17 Outpatient MAGALY RTACEY [facility] [id number] [facility] 2024-08-11 00:00:00 2024-08-11 08:32:44 Telephone Tushar Reeder [facility] 1.2.840.114 350.1.13.10 4.2.7.2.686 [id number] [facility] 2024-08-10 00:00:00 2024-08-11 08:12:34 Telephone Tushar Reeder [facility] 1.2.840.114 350.1.13.10 4.2.7.2.686 [id number] [facility] 2024-07-28 10:45:00 2024-07-28 11:00:00 [employer] Consultant Visit Pcp-Lab Tushar Reeder Pcp-Lab [facility] 1.2.840.114 350.1.13.10 4.2.7.2.686 [id number] [facility] 2024-07-28 09:30:00 2024-07-28 10:21:49 [facility] [id number] 2024-07-28 09:30:00 2024-07-28 10:21:49 Office Visit Varinder [facility] 1.2.840.114 350.1.13.10 4.2.7.2.686 [id number] [facility] 2024-03-28 00:00:00 2024-03-28 08:46:49 Refill Varinder [facility] 1.2.840.114 350.1.13.10 4.2.7.2.686 [id number] [facility] 2024-01-31 00:00:00 2024-03-04 18:19:45 Patient Secure Msg Doctor Unassigned, [place] [facility] 1.2.840.114 350.1.13.10 4.2.7.2.686 [id number] [facility] 2024-01-28 10:45:00 2024-01-28 11:00:00 [employer] Consultant Visit Pcp-Lab Varinder [facility] 1.2.840.114 350.1.13.10 4.2.7.2.686 [id number] [facility] 2024-01-28 10:00:00 2024-01-28 10:44:04 [facility] [id number] [facility] 2024-01-28 10:00:00 2024-01-28 10:44:04 Office Visit Varinder [facility] 1.2.840.114 350.1.13.10 4.2.7.2.686 [id number] [facility] 2024-01-18 00:00:00 2024-01-18 09:49:17 Refpaulino Reeder [facility] 1.2.840.114 350.1.13.10 4.2.7.2.686 [id number] [facility] 2024-01-17 00:00:00 2024-01-17 15:29:52 Refill Varinder [facility] 1.2.840.114 350.1.13.10 4.2.7.2.686 [id number] [facility] 2023-11-19 00:00:00 2023-11-19 00:00:00 Refill Varinder [facility] 1.2.840.114 350.1.13.10 4.2.7.2.686 [id number] [facility] 2023-10-15 13:00:00 2023-10-15 15:52:04 Outpatient GLO RICO [facility] [id number] [facility] 2023-10-15 13:00:00 2023-10-15 15:52:04 Office Visit Yamil Ramos Michael [facility] 1.2.840.114 350.1.13.10 4.2.7.2.686 [id number] [facility] 2023-10-14 00:00:00 2023-10-14 00:00:00 Telephone Reeder, [facility] 1.2.840.114 350.1.13.10 4.2.7.2.686 [id number] [facility] 2023-10-14 00:00:00 2023-10-14 00:00:00 Patient Secure Msg Varinder [facility] 1.2.840.114 350.1.13.10 4.2.7.2.686 [id number] [facility] 2023-09-29 00:00:00 2023-09-29 00:00:00 Patient Secure Msg Varinder [facility] 1.2.840.114 350.1.13.10 4.2.7.2.686 [id number] [facility] 2023-08-02 00:00:00 2023-08-02 00:00:00 Telephone Varinder [facility] 1.2.840.114 350.1.13.10 4.2.7.2.686 [id number] [facility] 2023-07-30 11:45:00 2023-07-30 12:00:00 [employer] Consultant Visit Pcp-Lab Reeder [facility] 1.2.840.114 350.1.13.10 4.2.7.2.686 [id number] [facility] 2023-07-30 11:45:00 2023-07-30 11:45:00 Outpatient R VARINDER [facility] [id number] [facility] 2023-07-29 11:30:00 2023-07-29 11:45:00 [employer] Consultant Visit Pcp-Lab Reeder [facility] 1.2.840.114 350.1.13.10 4.2.7.2.686 [id number] [facility] 2023-07-29 11:30:00 2023-07-29 11:30:00 Outpatient R VARINDER [facility] [id number] [facility] 2023-07-29 11:00:00 2023-07-29 11:13:59 Office Visit Tushar Reeder [facility] PAVNAVIDON 1.2.840.114 350.1.13.10 4.2.7.2.686 [id number] [facility] 2023-07-13 00:00:00 2023-07-13 00:00:00 Refill Tushar Reeder [facility] PAVNAVIDON 1.2.840.114 350.1.13.10 4.2.7.2.686 [id number] [facility] 2023-07-07 00:00:00 2023-07-07 00:00:00 Patient Secure Msg Doctor Unassigned, [facility] [facility] 1.2.840.114 350.1.13.10 4.2.7.2.686 [id number] [facility] 2023-06-13 00:00:00 2023-06-13 00:00:00 Refill Varinder [facility] 1.2.840.114 350.1.13.10 4.2.7.2.686 [id number] [facility] 2023-05-14 11:30:00 2023-05-14 11:45:00 Office Visit Misty Perez [facility] 1.2.840.114 350.1.13.10 4.2.7.2.686 [id number] [facility] 2023-05-14 11:30:00 2023-05-14 11:30:00 Outpatient R MISTY PEREZ [facility] [id number] [facility] 2023-02-05 09:45:00 2023-02-05 10:59:09 Outpatient R MISTY PEREZ [facility] [id number] [facility] 2023-02-05 09:45:00 2023-02-05 10:59:09 Office Visit Misty Perez [facility] 1.2.840.114 350.1.13.10 4.2.7.2.686 [id number] [facility] 2023-02-04 12:30:00 2023-02-04 12:45:00 [employer] Consultant Visit Pcp-Lab Varinder [facility] 1.2.840.114 350.1.13.10 4.2.7.2.686 [id number] [facility] 2023-02-04 11:30:00 2023-02-04 12:29:08 Outpatient R VARINDER [facility] [id number] [facility] 2023-02-04 11:30:00 2023-02-04 12:29:08 Office Visit Varinder [facility] 1.2.840.114 350.1.13.10 4.2.7.2.686 [id number] [facility] 2023-02-04 00:00:00 2023-02-04 00:00:00 Orders Only Doctor Unassigned, [place] [facility] 1.2.840.114 350.1.13.10 4.2.7.2.686 [id number] [facility] 2023-02-04 00:00:00 2023-02-04 00:00:00 Patient Secure Msg Varinder [facility] 1.2.840.114 350.1.13.10 4.2.7.2.686 [id number] [facility] 2023-02-01 00:00:00 2023-02-01 00:00:00 Refill Varinder [facility] 1.2.840.114 350.1.13.10 4.2.7.2.686 [id number] [facility] 2023-01-05 00:00:00 2023-01-05 00:00:00 Refill Varinder [facility] 1.2.840.114 350.1.13.10 4.2.7.2.686 [id number] [facility] 2022-08-18 08:50:11 2022-08-18 23:59:00 Outpatient R VARINDER [facility] [id number] [facility] 2022-08-18 08:50:11 2022-08-18 23:59:00 Hospital Encounter Varinder [facility] 1.2.840.114 350.1.13.10 4.2.7.2.686 [id number] [facility] 2022-08-11 00:00:00 2022-08-11 00:00:00 Patient Secure Msg Doctor Unassigned, [place] [facility] 1.2840.114 350.1.13.10 4.2.7.2.686 [id number] [facility] 2022-08-06 15:00:00 2022-08-06 15:18:57 Outpatient R VARINDER [facility] [id number] [facility] 2022-08-06 15:00:00 2022-08-06 15:18:57 Office Visit Varinder [facility] 1.2.840.114 350.1.13.10 4.2.7.2.686 [id number] [facility] 2022-06-20 00:00:00 2022-06-20 00:00:00 Refill Varinder [facility] 1.2.840.114 350.1.13.10 4.2.7.2.686 [id number] [facility] 2022-05-19 00:00:00 2022-05-19 00:00:00 Patient Secure Msg Doctor Unassigned, [place] [facility] 1.2.840.114 350.1.13.10 4.2.7.2.686 [id number] [facility] 2022-05-06 16:30:00 2022-05-06 16:45:00 [employer] Consultant Visit Pcp-Lab Varinder [facility] 1.2840.114 350.1.13.10 4.2.7.2.686 [id number] [facility] 2022-05-06 16:30:00 2022-05-06 16:30:00 Outpatient R VARINDER [facility] [id number] [facility] 2022-05-06 15:30:00 2022-05-06 16:18:28 Office Visit Varinder [facility] 1.2840.114 350.1.13.10 4.2.7.2.686 [id number] [facility] 2021-12-19 12:30:00 2021-12-19 12:45:00 [employer] Consultant Visit Pcp-Lab Pathology [facility] 1.2.840.114 350.1.13.10 4.2.7.2.686 [id number] [facility] 2021-12-19 12:30:00 2021-12-19 12:30:00 Outpatient R PATHOLOGY [facility] [id number] [facility] 2021-12-04 00:00:00 2021-12-04 00:00:00 Patient Secure Msg Varinder [facility] 1.2.840.114 350.1.13.10 4.2.7.2.686 [id number] [facility] 2021-11-11 00:00:00 2021-11-11 00:00:00 Orders Only Doctor Unassigned, [place] [facility] 1.840.114 350.1.13.10 4.2.7.2.686 [id number] [facility] 2021-11-05 15:30:00 2021-11-05 15:59:06 Outpatient R VARINDER TUSHAR [facility] [id number] [facility] 2021-11-05 15:30:00 2021-11-05 15:59:06 Office Visit Varinder Tushar [facility] PAVNAVIDON 1..840.114 350.1.13.10 4.2.7.2.686 [id number] [facility] 2021-11-05 15:30:00 2021-11-05 15:59:06 Outpatient TUSHAR PUENTE [facility] [id number] [facility] 2021-10-10 13:03:04 2021-10-10 23:59:00 Outpatient R HAILY MCKINLEY [facility] [id number] [facility] 2021-10-10 12:54:04 2021-10-10 23:59:00 Hospital Encounter Haily Mckinley [facility] 1.840.114 350.1.13.10 4.2.7.2.686 [id number] [facility] 2021-10-03 07:45:00 2021-10-03 08:00:00 [employer] Consultant Visit Pcp-Lab Pathology [facility] 1..840.114 350.1.13.10 4.2.7.2.686 [id number] [facility] 2021-10-03 07:45:00 2021-10-03 07:45:00 Outpatient R PATHOLOGY [facility] [id number] [facility] 2021-08-22 00:00:00 2021-08-22 00:00:00 Patient Secure Msg Dustin Elizalde [facility] 1.2840.114 350.1.13.10 4.2.7.2.686 [id number] [facility] 2021-08-14 00:00:00 2021-08-14 00:00:00 Telephone Dustin Elizalde [facility] 1.2840.114 350.1.13.10 4.2.7.2.686 [id number] [facility] 2021-08-11 11:15:00 2021-08-11 11:30:00 [employer] Consultant Visit Pcp-Erika Boss [facility] 1.84.114 350.1.13.10 4.2.7.2.686 [id number] [facility] 2021-08-11 11:15:00 2021-08-11 11:15:00 Outpatient R ERIKA NICOLE [facility] [id number] [facility] 2021-08-11 11:15:00 2021-08-11 11:15:00 Outpatient R ERIKA NICOLE [facility] [id number] [facility] 2021-08-11 09:10:00 2021-08-11 11:00:30 Office Visit Dustin Elizalde Unknown, Attending Charisma Pozo [facility] 1.284.114 350.1.13.10 4.2.7.2.686 [id number] [facility] 2021-08-11 09:10:00 2021-08-11 11:00:30 [facility] [id number] 2021-08-11 00:00:00 2021-08-11 00:00:00 Orders Only Doctor Unassigned, [place] [facility] 1.2840.114 350.1.13.10 4.2.7.2.686 [id number] [facility] 2021-04-12 17:16:14 2021-04-15 19:12:00 Inpatient nullFlavo r [facility] [id number] Jill Villegas 2021-04-13 16:55:00 2021-04-15 14:12:00 Inpatient BELLA SOLERGOPI [facility] [address] [facility] 2018-03-31 15:30:00 2018-04-01 04:59:59 Outpatient nullFlavo r [facility] Primary Care [facility] [id number] Jill hassan Bakari 2018-03-17 14:45:00 2018-03-18 04:59:59 Outpatient nullFlavo r [facility] Primary Care [facility] [id number] Finnkandace hassan [place] Results Test Description Test Time Test Comments Results Result Co mments Source [facility] [id number] 00:43:35 * Test Item Value Reference Range Interpretation Comme nts TSH (test code = 5821098331) See_Comment [Automated messa ge] The system which generated this result transmitted reference range: 0.45 - 4.70 mIU/L. The reference range was not used to interpret this result as normal/abnormal. Lab Interpretation (test code = 09893-7) Normal [facility] / [id number] 00:34:53* Test Item Value Reference Range Interpretation Comme nts PROTIME PATIENT (test code = 5964-2) See_Comment H [Automated messa ge] The system which generated this result transmitted reference range: 10.1 - 12.6 Seconds. The reference range was not used to interpret this result as normal/abnormal. INR (test code = 6301-6) Normal INR <1.1; Warfarin Therapeutic range 2.0 to 3.0 or 2.5 to 3.5, depending upon the indications. Lab Interpretation (test code = 98609-4) Abnormal [facility] WITH [id number] 00:13:13* Test Item Value Reference Range Interpretation Comme nts WBC (test code = 6690-2) See_Comment [Automated messa ge] The system which generated this result transmitted reference range: 4.20 - 10.70 10*3/?L. The reference range was not used to interpret this result as normal/abnormal. RBC (test code = 789-8) See_Comment L [Automated messa ge] The system which generated this result transmitted reference range: 4.26 - 5.52 10*6/?L. The reference range was not used to interpret this result as normal/abnormal. HGB (test code = 718-7) 12.4 g/dL 12.2-16.4 HCT (test code = 4544-3) 36.4 % 38.4-49.3 L MCV (test code = 787-2) 101.1 fL 81.7-95.6 H MCH (test code = 785-6) 34.4 pg 26.1-32.7 H MCHC (test code = 786-4) 34.1 g/dL 31.2-35 RDW-SD (test code = 88169-6) 53.8 fL 38.5-51.6 H RDW-CV (test code = 788-0) 14.3 % 12.1-15.4 PLT (test code = 777-3) See_Comment L [Automated messa ge] The system which generated this result transmitted reference range: 150 - 328 10*3/?L. The reference range was not used to interpret this result as normal/abnormal. MPV (test code = 53065-0) 9.6 fL 9.8-13 L NRBC/100 WBC (test code = 9324941967) See_Comment [Automated tab ticketbroker ssage] The system which generated this result transmitted reference range: 0.0 - 10.0 /100 WBCs. The reference range was not used to interpret this result as normal/abnormal. NRBC x10^3 (test code = 8962133547) See_Comment [Automated messa ge] The system which generated this result transmitted reference range: 10*3/?L. The reference range was not used to interpret this result as normal/abnormal. GRAN MAT (NEUT) % (test code = 770-8) 37.2 % IMM GRAN % (test code = 4470638790) 0.20 % LYMPH % (test code = 736-9) 41.3 % MONO % (test code = 5905-5) 15.4 % EOS % (test code = 713-8) 5.2 % BASO % (test code = 706-2) 0.7 % GRAN MAT x10^3(ANC) (test code = 2313017315) 1.56 10*3/uL 1.99-6.95 L IMM GRAN x10^3 (test code = 8318206735) 0-0.06 LYMPH x10^3 (test code = 731-0) 1.74 10*3/uL 1.09-3.23 MONO x10^3 (test code = 742-7) 0.65 10*3/uL 0.36-1.02 EOS x10^3 (test code = 711-2) 0.22 10*3/uL 0.06-0.53 BASO x10^3 (test code = 704-7) 0.03 10*3/uL 0.01-0.09 Lab Interpretation (test code = 98961-4) [facility]normal [facility] (29900)2022-05-07 00:09:09* Test Item Value Reference Range Interpretation Comme nts NA (test code = 8480411789) 138 mmol/L 135-145 K (test code = 5402588334) 3.9 mmol/L 3.5-5 CL (test code = 3640009360) 109 mmol/L 98-108 H CO2 TOTAL (test code = 8056326248) 25 mmol/L 23-31 AGAP (test code = 8577162079) 2-16 BUN (test code = 7165726269) 16 mg/dL 7-23 GLUCOSE (test code = 9555239360) 98 mg/dL 70-110 CREATININE (test code = 1423190308) 1.09 mg/dL 0.6-1.25 TOTAL BILI (test code = 0066107103) 1.8 mg/dL 0.1-1.1 H CALCIUM (test code = 6654538263) 9.5 mg/dL 8.6-10.6 T PROTEIN (test code = 3941008077) 8.1 g/dL 6.3-8.2 ALBUMIN (test code = 4860471812) 4.3 g/dL 3.5-5 ALK PHOS (test code = 6601706128) 96 U/L 34-122 ALTv (test code = 1742-6) 31 U/L 5-50 AST(SGOT) (test code = 4976483324) 48 U/L 13-40 H eGFR (test code = 8597820188) mL/min/1.73m2 AMAURY (test code = AMAURY) Association of Glomerular Filtration Rate (GFR) and Staging of Kidney Disease* + --+ --+ ------+| GFR (mL/min/1.73 m2) ?| With Kidney Damage ?| ?Without Kidney Damage+ --------+ --------+ +| ?>90 ?| ?Stage one ?| ? Normal ?+ ---+ ---+ -------+| ?60-89 ?| ?Stage two ?| ? Decreased GFR ? + --+ --+ ------+| ?30-59 ?| ?Stage three ?| ? Stage three ? + --+ --+ ------+| ?15-29 ?| ?Stage four ? | ? Stage four ?+ ---+ ---+ -------+| ?<15 (or dialysis) ? ?| ?Stage five ? | ? Stage five ?+ ---+ ---+ -------+ *Each stage assumes the associated GFR level has been in effect for at least three months. ?Stages 1 to 5, with or without kidney disease, indicate chronic kidney disease. Notes: Determination of stages one and two (with eGFR >59mL/min/1.73 m2) requires estimation of kidney damage for at least three months as defined by structural or functional abnormalities of the kidney, manifested by either:Pathological abnormalities or Markers of kidney damage (including abnormalities in the composition of the blood or urine or abnormalities in imaging tests). Lab Interpretation (test code = 51424-6) Abnormal [facility] [id number] 13:54:00* Test Item Value Reference Range Interpretation Comme nts Coronavirus (COVID-19) LINDA (test code = Coronavirus (COVID-19) LINDA) Not Detected *NA*(04/15/21 8:54 AM) [facility]2021-08-31 13:54:00* Test Item Value Reference Range Interpretation Comme nts Source Respiratory Panel PCR (test code = Source Respiratory Panel PCR) Nasophrngl Swb *NA*(04/15/21 8:54 AM) Influenza A PCR (test code = Influenza A PCR) Negative *NA*(04/15/21 8:54 AM) Influenza B PCR (test code = Influenza B PCR) Negative *NA*(04/15/21 8:54 AM) RSV PCR (test code = RSV PCR) Negative *NA*(04/15/21 8:54 AM) [facility] [id number] 10:46:00* Test Item Value Reference Range Interpretation Comme nts Glucose Lvl (test code = Glucose Lvl) 93 70-99 BUN (test code = BUN) 14 7-22 Creatinine Lvl (test code = Creatinine Lvl) 1.44 0.50-1.40 Sodium Lvl (test code = Sodium Lvl) 140 135-145 Potassium Lvl (test code = P otassium Lvl) 3.3 3.5-5.1 Chloride Lvl (test code = Chloride Lvl) 112 95-109 CO2 (test code = CO2) 21 24-32 AGAP (test code = AGAP) 10.3 10.0-20.0 Calcium Lvl (test code = Calcium Lvl) 8.2 8.5-10.5 B/C Ratio (test code = B/C Ratio) 10 1 6-25 Total Protein (test code = T otal Protein) 7.2 6.4-8.4 Albumin Lvl (test code = Albumin Lvl) 2.6 3.5-5.0 Globulin (test code = Globulin) 4.6 2.7-4.2 A/G Ratio (test code = A/G Ratio) 0.6 1 0.7-1.6 ALT (test code = ALT) 34 <=65 AST (test code = AST) 69 <=37 Alk Phos (test code = Alk Phos) 45 39-136 Bili Total (test code = Bili Total) 1.9 0.2-1.3 eGFR (test code = eGFR) 54 Magnesium Lvl (test code = M agnesium Lvl) 1.7 1.8-2.4 Procalcitonin Lvl (test code = Procalcitonin Lvl) no gt <=0.10 [id number] 10:46:00* Test Item Value Reference Range Interpretation Comme nts WBC (test code = WBC) 3.4 3.7-10.4 RBC (test code = RBC) 2.78 4.70-6.10 Hgb (test code = Hgb) 7.4 14.0-18.0 Hct (test code = Hct) 22.2 42.0-54.0 MCV (test code = MCV) 79.8 80.0-94.0 MCH (test code = MCH) 26.7 pg 27.0-31.0 MCHC (test code = MCHC) 33.4 32.0-36.0 RDW (test code = RDW) 18.9 11.5-14.5 Platelet (test code = Platelet) 80 133-450 MPV (test code = MPV) 9.0 7.4-10.4 Segs (test code = Segs) 34.3 45.0-75.0 Lymphocytes (test code = Lymphocytes) 45.1 20.0-40.0 Monocytes (test code = Monocytes) 17.8 2.0-12.0 Eosinophils (test code = Eosinophils) 2.4 <=4.0 Basophils (test code = Basophils) 0.4 <=1.0 Neutrophils # (test code = Neutrophils #) 1.2 1.5-8.1 Lymphocytes # (test code = Lymphocytes #) 1.5 1.0-5.5 Monocytes # (test code = Monocytes #) 0.6 <=0.8 Eosinophils # (test code = Eosinophils #) 0.1 <=0.5 [facility] Cent[id number] 03:19:00* Test Item Value Reference Range Interpretation Comme nts Hgb (test code = Hgb) 7.7 14.0-18.0 Hct (test code = Hct) 23.3 42.0-54.0 [facility] CenterIjgwhhgAUFWUHZALR0902-59-77 17:17:00* Test Item Value Reference Range Interpretation Comme nts Hgb (test code = Hgb) 7.6 14.0-18.0 Hct (test code = Hct) 24.1 42.0-54.0 [facility]2021-08-30 17:16:00* Test Item Value Reference Range Interpretation Comme nts Glucose Lvl (test code = Glucose Lvl) 178 70-99 BUN (test code = BUN) 17 7-22 Creatinine Lvl (test code = Creatinine Lvl) 1.61 0.50-1.40 Sodium Lvl (test code = Sodium Lvl) 138 135-145 Potassium Lvl (test code = P otassium Lvl) 3.3 3.5-5.1 Chloride Lvl (test code = Chloride Lvl) 109 95-109 CO2 (test code = CO2) 21 24-32 Calcium Lvl (test code = Calcium Lvl) 8.3 8.5-10.5 Total Protein (test code = T otal Protein) 7.5 6.4-8.4 Albumin Lvl (test code = Albumin Lvl) 2.8 3.5-5.0 ALT (test code = ALT) 37 <=65 AST (test code = AST) 77 <=37 Alk Phos (test code = Alk Phos) 51 39-136 Bili Total (test code = Bili Total) 2.4 0.2-1.3 AGAP (test code = AGAP) 11.3 10.0-20.0 B/C Ratio (test code = B/C Ratio) 11 1 6-25 Globulin (test code = Globulin) 4.7 2.7-4.2 A/G Ratio (test code = A/G Ratio) 0.6 1 0.7-1.6 eGFR (test code = eGFR) 47 Magnesium Lvl (test code = M agnesium Lvl) 1.6 1.8-2.4 [facility] CenterBgiqsvkYTHUVMAMAA0610-64-56 00:51:00* Test Item Value Reference Range Interpretation Comme [facility] Segs (test code = Segs) 30.9 45.0-75.0 Lymphocytes (test code = Lymphocytes) 41.9 20.0-40.0 Monocytes (test code = Monocytes) 23.0 2.0-12.0 Eosinophils (test code = Eosinophils) 3.3 <=4.0 Basophils (test code = Basophils) 0.9 <=1.0 Neutrophils # (test code = Neutrophils #) 0.8 1.5-8.1 Lymphocytes # (test code = Lymphocytes #) 1.0 1.0-5.5 Monocytes # (test code = Monocytes #) 0.6 <=0.8 Eosinophils # (test code = Eosinophils #) 0.1 <=0.5 Microcyte (test code = Microcyte) 1+ *ABN*(04/13/21 7:51 PM) WBC (test code = WBC) 2.5 3.7-10.4 RBC (test code = RBC) 2.66 4.70-6.10 Hgb (test code = Hgb) 6.7 14.0-18.0 Hct (test code = Hct) 20.4 42.0-54.0 MCV (test code = MCV) 76.6 80.0-94.0 MCH (test code = MCH) 25.1 pg 27.0-31.0 MCHC (test code = MCHC) 32.8 32.0-36.0 RDW (test code = RDW) 18.9 11.5-14.5 Platelet (test code = Platelet) 78 133-450 MPV (test code = MPV) 8.4 7.4-10.4 [facility] [employer] [id number] 21:14:00* Test Item Value Reference Range Interpretation Comme nts RBC product (test code = RBC product) Product available 7(04/13/21 4:14 PM) [facility]phtbtkKFXFSEBQRJ3187-71-13 19:18:00* Test Item Value Reference Range Interpretation Comme nts Hgb (test code = Hgb) 6.9 14.0-18.0 Hct (test code = Hct) 21.2 42.0-54.0 [facility] TempleBquhxgmDSGUAWLICI4693-98-13 19:18:00* Test Item Value Reference Range Interpretation Comme nts Hep A IgM (test code = Hep A IgM) NON-REACTIVE Hep Bs Ag (test code = Hep B s Ag) NON-REACTIVE Hep B Core IgM (test code = Hep B Core IgM) NON-REACTIVE Hep C Ab (test code = Hep C Ab) NON-REACTIVE Hep Signal to Cut-Off (test code = Hep Signal to Cut-Off) 0.03 1 [facility] CenterXnzcztyMEXKGHNBPJ9389-66-37 19:18:00* Test Item Value Reference Range Interpretation Comme nts Vancomycin AUC (test code = Vancomycin AUC) 16.7 [facility] [employer] [id number] 16:32:00* Test Item Value Reference Range Interpretation Comme nts RBC product (test code = RBC product) Product available (04/13/21 11:32 AM) [facility] Cent[id number] 15:07:00* Test Item Value Reference Range Interpretation Comme nts Hgb (test code = Hgb) 6.2 14.0-18.0 Hct (test code = Hct) 19.0 42.0-54.0 [facility] CenterCHEM [id number] 14:05:00* Test Item Value Reference Range Interpretation Comme nts Glucose Lvl (test code = Glucose Lvl) 100 70-99 BUN (test code = BUN) 23 7-22 Creatinine Lvl (test code = Creatinine Lvl) 1.64 0.50-1.40 Sodium Lvl (test code = Sodium Lvl) 137 135-145 Potassium Lvl (test code = P otassium Lvl) 3.2 3.5-5.1 Chloride Lvl (test code = Chloride Lvl) 106 95-109 CO2 (test code = CO2) 24 24-32 Calcium Lvl (test code = Calcium Lvl) 8.8 8.5-10.5 AGAP (test code = AGAP) 10.2 10.0-20.0 eGFR (test code = eGFR) 46 Procalcitonin Lvl (test code = Procalcitonin Lvl) 0.09 <=0.10 [facility] CenterEuuaacbFFIVRMSOYH4374-23-25 14:05:00* Test Item Value Reference Range Interpretation Comme nts Vancomycin AUC (test code = Vancomycin AUC) 25.1 [facility] CenterBACTERIAL - [id number] 11:49:00* Test Item Value Reference Range Interpretation Comme nts MRSA by PCR (test code = MRSA by PCR) Negative (04/13/21 6:49 AM) [facility] CenterURINE AND [id number] 05:46:00* Test Item Value Reference Range Interpretation Comme nts UA Turbidity (test code = UA Turbidity) Clear (04/13/21 12:46 AM) UA Spec Grav (test code = UA Spec Grav) 1.012 1 UA pH (test code = UA pH) 6.0 1 5.0-8.0 UA Protein (test code = UA Protein) 30 mg/dL UA Glucose (test code = UA Glucose) Negative mg/dL UA Ketones (test code = UA Ketones) Negative mg/dL UA Bili (test code = UA Bili) Negative *NA*(04/13/21 12:46 AM) UA Blood (test code = UA Blood) Large *ABN*(04/13/21 12:46 AM) UA Urobilinogen (test code = UA Urobilinogen) 2.0 0.1-1.0 UA Nitrite (test code = UA Nitrite) Negative (04/13/21 12:46 AM) UA Leuk Est (test code = UA Leuk Est) Negative (04/13/21 12:46 AM) UA Sq Epi (test code = UA Sq Epi) Occasional /LPF UA WBC (test code = UA WBC) 1 <=5 UA RBC (test code = UA RBC) 63 <=2 UA Color (test code = UA Color) Ltyellow [facility] [id number] 01:23:00* Test Item Value Reference Range Interpretation Comme nts MMA Qnt (test code = MMA Qnt) 366 [facility] [id number] 01:23:00* Test Item Value Reference Range Interpretation Comme nts Ferritin Lvl (test code = Ferritin Lvl) 24 22-275 Iron (test code = Iron) 30 TIBC (test code = TIBC) 438 % Satur Fe (test code = % Satur Fe) 7 Folate Lvl (test code = Folate Lvl) 12.2 Vitamin B12 Lvl (test code = Vitamin B12 Lvl) 699 [facility] CenterCARDIAC [id number] 01:23:00* Test Item Value Reference Range Interpretation Comme nts Troponin-I (test code = Troponin-I) 0.02 <=0.40 [facility] CenterCHEM [id number] 01:23:00* Test Item Value Reference Range Interpretation Comme nts Bili Total (test code = Bili Total) 1.2 0.2-1.3 Bili Direct (test code = Bili Direct) 0.5 <=0.3 Bili Indirect (test code = B cassandra Indirect) 0.7 <=1.0 [facility] CenterMhsebnnVMCJHPMHVN1278-58-07 01:23:00* Test Item Value Reference Range Interpretation Comme nts Homocyst Tot (test code = Homocyst Tot) 19.7 3.7-13.9 Hep A IgM (test code = Hep A IgM) NON-REACTIVE Hep Bs Ag (test code = Hep B s Ag) NON-REACTIVE Hep B Core IgM (test code = Hep B Core IgM) NON-REACTIVE Hep C Ab (test code = Hep C Ab) NON-REACTIVE Hep Signal to Cut-Off (test code = Hep Signal to Cut-Off) 0.03 1 [facility] [employer] [id number] 19:23:00* Test Item Value Reference Range Interpretation Comme nts RBC product (test code = RBC product) Product available 8(04/12/21 2:23 PM) [facility] [employer] [id number] 17:51:00* Test Item Value Reference Range Interpretation Comme nts ABO/Rh (test code = ABO/Rh) A POS Antibody Scrn (test code = Antibody Scrn) Negative (04/12/21 12:51 PM) [facility] WhatsOpenCARDIAC [id number] 17:51:00* Test Item Value Reference Range Interpretation Comme nts BNP (test code = BNP) 340 Troponin-I (test code = Troponin-I) 0.03 <=0.40 [facility] WhatsOpenCHEM [id number] 17:51:00* Test Item Value Reference Range Interpretation Comme [facility] LDH (test code = LDH) 249 98-192 Glucose Lvl (test code = Glucose Lvl) 104 70-99 BUN (test code = BUN) 22 7-22 Creatinine Lvl (test code = Creatinine Lvl) 1.80 0.50-1.40 Sodium Lvl (test code = Sodium Lvl) 139 135-145 Potassium Lvl (test code = P otassium Lvl) 3.1 3.5-5.1 Chloride Lvl (test code = Chloride Lvl) 106 95-109 CO2 (test code = CO2) 29 24-32 Calcium Lvl (test code = Calcium Lvl) 8.8 8.5-10.5 Total Protein (test code = T otal Protein) 8.2 6.4-8.4 Albumin Lvl (test code = Albumin Lvl) 3.0 3.5-5.0 ALT (test code = ALT) 31 <=65 AST (test code = AST) 64 <=37 Alk Phos (test code = Alk Phos) 50 39-136 Bili Total (test code = Bili Total) 1.2 0.2-1.3 AGAP (test code = AGAP) 7.1 10.0-20.0 B/C Ratio (test code = B/C Ratio) 12 1 6-25 Globulin (test code = Globulin) 5.2 2.7-4.2 A/G Ratio (test code = A/G Ratio) 0.6 1 0.7-1.6 eGFR (test code = eGFR) 41 [facility] CenterNeythdwFRHQMPZVHR5336-95-08 17:51:00* Test Item Value Reference Range Interpretation Comme nts Retic Auto (test code = Retic Auto) 2.1 0.5-1.5 Neutrophils # (test code = Neutrophils #) 0.7 1.5-8.1 Lymphocytes # (test code = Lymphocytes #) 1.4 1.0-5.5 Monocytes # (test code = Monocytes #) 0.8 <=0.8 Eosinophils # (test code = Eosinophils #) 0.2 <=0.5 Segs (test code = Segs) 21.0 45.0-75.0 Bands (test code = Bands) 1.0 <=11.0 Lymphocytes (test code = Lymphocytes) 45.0 20.0-40.0 Monocytes (test code = Monocytes) 26.0 2.0-12.0 Eosinophils (test code = Eosinophils) 7.0 <=4.0 Atypical Lymphs (test code = Atypical Lymphs) 0.0 Plt Morph (test code = Plt Morph) Normal (04/12/21 12:51 PM) Schistocyte (test code = Schistocyte) 1-3 per HPF (04/12/21 12:51 PM) WBC (test code = WBC) 3.0 3.7-10.4 RBC (test code = RBC) 2.08 4.70-6.10 MCV (test code = MCV) 76.6 80.0-94.0 MCH (test code = MCH) 24.6 pg 27.0-31.0 MCHC (test code = MCHC) 32.1 32.0-36.0 RDW (test code = RDW) 18.3 11.5-14.5 Platelet (test code = Platelet) 97 133-450 MPV (test code = MPV) 8.5 7.4-10.4 PT (test code = PT) 16.7 s 12.0-14.7 INR (test code = INR) 1.38 1 0.85-1.17 PTT (test code = PTT) 38.2 s 22.9-35.8 [facility] [id number] 17:51:00* Test Item Value Reference Range Interpretation Comme nts Coronavirus (COVID-19) LINDA (test code = Coronavirus (COVID-19) LINDA) Not Detected (04/12/21 12:51 PM) [facility] Notes Date/Time Note Provider Source 2024-08-15 08:18:24 Images from the original note were not included. Requested Prescriptions Pending Prescriptions Disp Refills CARVEDILOL 3.125 mg tablet [Pharmacy Med Name: CARVEDILOL 3.125 MG TABLET] 60 tablet 5 Sig: TAKE 1 TABLET BY MOUTH TWICE A DAY WITH MEALS Cardiovascular: Beta Blockers Passed - 08/14/2024 12:45 AM Passed - Valid encounter within last 12 months Passed - Heart rate within normal limits and completed in the last 12 months Pulse Readings from Last 1 Encounters: 08/11/24 78 ATORVASTATIN 10 mg tablet [Pharmacy Med Name: ATORVASTATIN 10 MG TABLET] 30 tablet 5 Sig: TAKE 1 TABLET BY MOUTH EVERYDAY AT BEDTIME Cardiovascular: Antilipid - HMG-CoA Reductase Inhibitors Failed - 08/14/2024 12:45 AM Failed - AST in normal range and within 360 days AST(SGOT) Date Value Ref Range Status 07/28/2024 56 (H) 13 - 40 U/L Final Passed - Valid encounter within last 12 months Recent Visits Date Type Provider Dept 07/28/24 Office Visit Tushar Reeder MD [facility] 01/28/24 Office Visit Tushar Reeder MD [facility] Showing recent visits within past 365 days and meeting all other requirements Future Appointments Date Type Provider Dept 01/17/25 Appointment Tushar Reeder MD [facility] Showing future appointments within next 365 days and meeting all other requirements Passed - Total Cholesterol within 360 days CHOL Date Value Ref Range Status 07/28/2024 231 (H) 120 - 200 mg/dL Final Passed - LDL within 360 days LDL CHOL Date Value Ref Range Status 07/28/2024 122 <=160 mg/dL Final VLDL Date Value Ref Range Status 07/28/2024 17 5 - 60 mg/dL Final Passed - HDL within 360 days HDL Date Value Ref Range Status 07/28/2024 92 >40 mg/dL Final HDLC RATIO Date Value Ref Range Status 07/28/2024 2.5 <=5.0 Final Passed - Triglycerides within 360 days TRIG Date Value Ref Range Status 07/28/2024 84 30 - 170 mg/dL Final Passed - ALT in normal range and within 360 days ALTv Date Value Ref Range Status 07/28/2024 31 5 - 50 U/L Final Last rx on file YASH: 08/11/24 Assessment/Plan Primary hypertension Chronic, stable. BP well-controlled during today's visit. Plan to continue current antihypertensives. - c/w carvedilol 3.125 mg BID - c/w spironolactone 12.5 mg daily RTC: PRN or 01/17/25 as previously scheduled Patient was discussed with: Dr. Rees NOV: 01/17/25 Refilling carvedilol per C51 ambulatory refill guidelines. Sent electronically with receipt confirmed by pharmacy. Routing atorvastatin refill request to provider for review. [facility] Access Center Shantell Yanes, MSN, RN, [facility]- RRING MACHINE OPERATOR Shantell Yanes RN [facility] 2024-08-14 10:15:13 Pt seen in clinic 08/11/24 N Wood LVN [facility] 2024-08-11 11:45:00 PT came in today for a FLU/COVID swab. Nasal swab 7x in each nostril. Swab sent off in viral transport tube. [facility] 2024-08-11 08:24:32 Returned call and spoke with patient. Patient reports experiencing constant coughing since yash on 07/28/24. He reports phlegm is clearer and head is clearer. He said that he had a low grade fever earlier in the week, and his abdomen is sore from coughing and is sleeping a lot more lately. Pt says he has tried taking Nyquil, Guaifenesin, acetaminophen, dextromethorphan, and cough drops, but has not helped. Pt denies sob, wheezing. He agreed to be seen in clinic today at 11:10 am. Nia Menchaca RN 08/11/2024 8:31 AM RRING MACHINE OPERATOR Nia Menchaca RN [facility] 2024-08-10 14:55:46 Pepe Gandara is a 58 year old male is calling stating Pepe was seen 07/28/24 and received a flu shot. He has been coughing and has had congestion since his visit. He has been coughing up a jensen to brown colored phlegm. Please call [phone] [facility] Nereida Estrella [facility] 2024-07-28 10:45:00 Images from the original note were not included. Venipuncture collection performed by clean technique on the left anticubitus. Total of 1 attempts were made. Slight pressure and a bandage/dressing were applied to the site(s). The patient experienced no complications. The following specimens were processed according to instructions and sent to [facility] laboratories per lab order on : LT BLUE SST 1 RED LAV 1 PPT DK GREEN (LiHep) DK GREEN (SodH) GOLDBERG DK BLUE (K2) DK BLUE (S) ACD Blood Culture NIPT/NTD RRING MACHINE OPERATOR [facility] 2024-01-28 10:45:00 Images from the original note were not included. Venipuncture collection performed by clean technique on the left anticubitus. Total of 1 attempts were made. Slight pressure and a bandage/dressing were applied to the site(s). The patient experienced no complications. The following specimens were processed according to instructions and sent to [facility] laboratories per lab order on 01/28/2024 : LT BLUE SST 1 RED LAV 2 PPT DK GREEN (LiHep) DK GREEN (SodH) GOLDBERG DK BLUE (K2) DK BLUE (S) ACD Blood Culture NIPT/NTD [facility] 2023-10-15 09:52:32 Pt scheduled 10/15/23 at 1:00 pm RRING MACHINE OPERATOR [facility] 2023-10-14 16:59:31 Called patient in regards to possibly having pink eye. He advises eye was sticky and discolored. Future Appointments Date Time Provider Department Center 10/15/2023 1:00 PM YAMIL TEAM [facility]B [facility] 01/28/2024 10:00 AM [facility] RRING MACHINE OPERATOR [facility] 2023-10-14 14:53:35 Pepe Gandara is a 58 year old male Pt is returning call due to possibly having pink eye, next avail appt showing November 04 Eye was discolored and sticky Please contact pt RRING MACHINE OPERATOR Jairo Maldonado [facility] 2023-10-14 14:46:23 Called pt and lvm to call back and schedule next available. N Ibarra [facility] 2021-04-12 15:40:00 PROCEDURE INFORMATIO N: Exam: US Abdomen, Limited; Right Upper Quadrant Exam date and time: 04/12/2021 3:48 PM Age: 55 years old Clinical indication: /alcohol abuse TECHNIQUE: Imaging protocol: US abdomen. Real time ultrasound with image documentation. Limited exam focused on the right upper quadrant. COMPARISON: No relevant prior studies available. FINDINGS: Liver: Normal parenchymal echotexture. No masses. The main portal vein appears patent and demonstrates hepatopetal flow. Gallbladder: There are a few small gallstones in the lumen of the gallbladder with small echogenic polyps along the anterior wall. There is minimal gallbladder wall thickening up to 6 mm. Common bile duct: The common bile duct measures 4 mm. No stones. Pancreas: The visualized pancreas is unremarkable. Right kidney: The right kidney measures 11.9 cm. No mass. No hydronephrosis. IMPRESSION: Findings suggesting cholelithiasis and small gallbladder wall polyps with gallbladder wall thickening. Garth Michelle MD On 04/12/2021 16:31:54; [id number] [facility] 2021-04-12 15:40:00 PROCEDURE INFORMATIO N: Exam: US Abdomen, Limited; Right Upper Quadrant Exam date and time: 04/12/2021 3:48 PM Age: 55 years old Clinical indication: /alcohol abuse TECHNIQUE: Imaging protocol: US abdomen. Real time ultrasound with image documentation. Limited exam focused on the right upper quadrant. COMPARISON: No relevant prior studies available. FINDINGS: Liver: Normal parenchymal echotexture. No masses. The main portal vein appears patent and demonstrates hepatopetal flow. Gallbladder: There are a few small gallstones in the lumen of the gallbladder with small echogenic polyps along the anterior wall. There is minimal gallbladder wall thickening up to 6 mm. Common bile duct: The common bile duct measures 4 mm. No stones. Pancreas: The visualized pancreas is unremarkable. Right kidney: The right kidney measures 11.9 cm. No mass. No hydronephrosis. IMPRESSION: Findings suggesting cholelithiasis and small gallbladder wall polyps with gallbladder wall thickening. Garth Michelle MD On 04/12/2021 16:31:54; [id number] [facility] 2021-04-12 12:50:00 PROCEDURE INFORMATIO N: Exam: XR Chest Exam date and time: 04/12/2021 1:01 PM Age: 55 years old Clinical indication: Pain; Additional info: Chest pain/sob TECHNIQUE: Imaging protocol: XR of the chest. Views: 1 view. COMPARISON: No relevant prior studies available. FINDINGS: Lungs: Mild decreased lung volumes. No consolidation. Pleural spaces: No pleural effusion. No pneumothorax. Heart/Mediastinum: Heart size is within normal limits. Vasculature is unremarkable. Bones/joints: No acute osseous abnormalities. IMPRESSION: No acute cardiopulmonary findings. Rachid Clay MD On 04/12/2021 13:36:25; [id number] [facility] 2021-04-12 12:50:00 PROCEDURE INFORMATIO N: Exam: XR Chest Exam date and time: 04/12/2021 1:01 PM Age: 55 years old Clinical indication: Pain; Additional info: Chest pain/sob TECHNIQUE: Imaging protocol: XR of the chest. Views: 1 view. COMPARISON: No relevant prior studies available. FINDINGS: Lungs: Mild decreased lung volumes. No consolidation. Pleural spaces: No pleural effusion. No pneumothorax. Heart/Mediastinum: Heart size is within normal limits. Vasculature is unremarkable. Bones/joints: No acute osseous abnormalities. IMPRESSION: No acute cardiopulmonary findings. Rachid Clay MD On 04/12/2021 13:36:25; [id number] [facility]
[2024-12-02] MEDS ORDERED: ONDANSETRON 4 MG/2 ML VIAL ONE (12:35)
[2024-12-02 12:54] LABS: Absolute Eosinophils 0.2 K/uL (0-0.5); Absolute Lymphocytes (CBC) 0.9 K/uL (0.7-4.9); Absolute Monocytes 0.6 K/uL (0.1-1.3); Absolute Neutrophil 3.3 K/uL (1.8-8.0); Basophils % 0.7 % (0-1.3); Hematocrit 38.2 % (39.6-49.0); Hemoglobin 12.9 g/dL (13.6-17.9); Lymphocytes % 17.3 % (15.3-44.8); MCH 32.9 pg (27.0-35.0); MCHC 33.8 g/dL (32.0-36.0); MCV 97.3 fL (80-100); MPV 8.3 fL (7.6-11.3); Monocytes % 11.1 % (3.3-12.3); Neutrophils % 66.9 % (41.7-73.7); Platelets 117 thou/uL (152-406); RBC Red Blood Cell Count 3.93 M/uL (4.33-5.43); Red Cell Distribution Width 14.9 % (12.1-15.2)
[2024-12-02 13:08] LABS: PT Prothrombin Time 14.8 SECONDS (10-13.0); Protime INR 1.32
--- NOTE | 2024-12-02 13:08 | RAD REPORT ---
EXAM: Chest Single View HISTORY: 59 years Male CHEST PAIN COMPARISON: None. FINDINGS: LUNGS/PLEURA: The lungs are clear. No pleural effusions or pneumothorax. No pulmonary edema. CARDIAC/MEDIASTINUM: The cardiac silhouette is within normal limits. UPPER ABDOMEN: No significant abnormality. BONES: No acute abnormality. LINES/TUBES/OTHER: N/A IMPRESSION: No evidence of acute cardiopulmonary disease.
[2024-12-02 13:14] LABS: Albumin 3.5 g/dL (3.4-5.0); Albumin/Globulin Ratio 0.9 (1.1-1.8); Anion Gap 12.6 mEq/L (5.0-15.0); Bilirubin Direct 0.8 mg/dL (0-0.2); Bilirubin Total 2.8 mg/dL (0.2-1.0); Globulin 3.9 g/dL (2.3-3.5); Magnesium 1.8 mg/dL (1.6-2.4); Potassium 3.6 mEq/L (3.5-5.1); Protein, Total 7.4 g/dL (6.4-8.2); Troponin High Sensitivity 5.9 pg/mL (<58.9)
--- NOTE | 2024-12-02 13:19 | ER ---
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 Coronavirus screen: At this time, the client does not indicate any symptoms associated with coronavirus-19. Ebola Screen: No symptoms or risks identified at this time. Initial Sepsis Screen: Does the patient meet any 2 criteria? No. Patient's initial sepsis screen is negative. Does the patient have a suspected source of infection? No. Patient's initial sepsis screen is negative. Risk Assessment: Do you want to hurt yourself or someone else? Patient reports no desire to harm self or others. Onset of symptoms was December 02, 2024. Care prior to arrival: IV initiated. 20 GA, in the left antecubital area, Glucose check: 168. 12:10 Method Of Arrival: EMS: [facility] bp 12:10 Acuity: AYE 3 bp Triage Assessment: 12:12 General: Appears in no apparent distress. comfortable, Behavior is calm, cooperative, bp appropriate for age. Pain: Denies pain. EENT: No deficits noted. Neuro: Level of Consciousness is awake, alert, obeys commands, Oriented to Appropriate for age Reports a syncopal episode. Cardiovascular: No deficits noted. Respiratory: No deficits noted. GI: No signs and/or symptoms were reported involving the gastrointestinal system. : No signs and/or symptoms were reported regarding the genitourinary system. Derm: No deficits noted. Musculoskeletal: No deficits noted. Historical: - Allergies: 12:12 No Known Allergies; bp - PMHx: 12:45 Hypertensive disorder; sb4 12:45 Esophageal varicies; sb4 - Immunization history:: Adult Immunizations up to date. - Infectious Disease History:: Denies. - Social history:: Smoking status: Patient denies any tobacco usage or history of. Screenin:43 [facility] ED Fall Risk Assessment (Adult) History of falling in the last 3 months, bp including since admission No falls in past 3 months (0 pts) Confusion or Disorientation No (0 pts) Intoxicated or Sedated No (0 pts) Impaired Gait No (0 pts) Mobility Assist Device Used No (0 pt) Altered Elimination No (0 pt) Score/Fall Risk Level 0 - 2 = Low Risk Oriented to surroundings. Abuse screen: Denies threats or abuse. Denies injuries from another. Nutritional screening: No deficits noted. Tuberculosis screening: No symptoms or risk factors identified. Assessment: 13:13 Reassessment: No changes from previously documented assessment. Patient and/or family ll1 updated on plan of care and expected duration. Pain level reassessed. Patient is alert, oriented x 3, equal unlabored respirations, skin warm/dry/pink. 13:43 Reassessment: TRANSFER INITIATED. bp 14:05 Reassessment: REPORT TO SURJIT LEDBETTER AT [facility] ER. [facility] PENDING FOR TRANSPORT. bp Vital Signs: 12:10 BP 137 / 68; Pulse 60; Resp 16; Temp 98; Pulse Ox 100% ; bp 13:13 BP 154 / 79; Pulse 61; Resp 17; Pulse Ox 100% ; ll1 13:42 BP 132 / 94; Pulse 68; Resp 16; Pulse Ox 100% ; bp 13:57 Weight 86.18 kg; sb4 14:09 BP 121 / 68; Pulse 64; Resp 16; Pulse Ox 100% ; bp 14:35 BP 109 / 60; Pulse 67; Resp 16; Pulse Ox 100% ; bp ED Course: 12:10 Patient arrived in ED. bp 12:11 Triage completed. bp 12:12 Arm band placed on. bp 12:13 [facility] sb4 12:13 Bharathi Dubon MD is Attending Physician. sb4 12:14 Remy Johnson, RN is Primary Nurse. bp 12:38 EKG done, by ED staff, reviewed by Cleo Velez PA-C. em1 12:40 Maintain EMS IV. Dressing intact. Good blood return noted. Site clean \T\ dry. Gauge \T\ bp site: 20 LAC. Flushed with 10 mL NS IV is patent, is intact, with fluids infusing freely, with good blood return. 12:45 Initial lab(s) drawn, by me, sent to lab. bp 13:06 CT Head C Spine In Process Unspecified. EDMS 13:17 [id number] called [facility] for transfer talked to [facility]. sp 13:43 Patient has correct armband on for positive identification. bp 13:43 Inserted saline lock: 20 gauge in right antecubital area, using aseptic technique. bp Blood collected. Flushed with 10 mL NS. 13:48 no ICU beds per [facility] pt didn't want to go to [facility]. sp 13:48 called [facility] for transfer talked to [facility]. sp 14:[id number] Charan Kendall accepted pt. [id number] admin approval by Precious Elliott RN, TC. to the sp ER report number [phone] [facility] will call to activate [facility]. 14:34 No provider procedures requiring assistance completed. Patient transferred, IV remains bp in place. Administered Medications: 12:37 Drug: Ondansetron IVP 4 mg IVP once; over 2 minutes Route: IVP; Site: left antecubital; bp 13:12 Follow up: Response: No adverse reaction ll1 13:33 Drug: Keppra IV 1000 mg IV at calculated rate once Route: IV; Rate: calculated rate; bp Site: left antecubital; 13:42 Follow up: IV Status: Completed infusion bp 13:33 Drug: Labetalol IV 10 mg IV at calculated rate once over 2 mins; For SBP greater than bp 140. Hold for HR less than 60, notify provider. Route: IV; Rate: calculated rate; Infused Over: 2 mins; Site: left antecubital; 13:42 Follow up: IV Status: Completed infusion bp 13:42 Drug: niCARdipine IV 5 mg/hr IV at calculated rate See Administration Instructions; bp (Standard concentration 25 mg / 250 mL NS); Recommended max rate 15 mg/hr; Titrate 2.5 mg/hr as often as every 15 minutes to achieve goal (see titration policy); Goal parameter SBP less than 160 mmHg Route: IV; Rate: calculated rate; Site: right antecubital; 14:01 Follow up: IV Status: Infusion continued upon transfer bp 14:34 Not Given (Physician Discretion): [id number] mg IV at per protocol once bp Medication: 14:34 VIS not applicable for this client. bp Outcome: 13:18 ER care complete, transfer ordered by MD. kuhn 14:34 Transferred by helicopter to [facility], Transfer form completed. bp 14:34 Condition: stable 14:34 Instructed on the need for transfer, 14:36 Patient left the ED. bp Signatures: Dispatcher [employer] EDMS Svetlana Mckeon Eric em1 Remy Johnson, RN RN bp Yao Betancourt RN RN ll1 Cleo Velez, EFE PAUrvashi sb4 Corrections: (The following items were deleted from the chart) 13:13 13:13 BP 154 / 79; Pulse 57bpm; Resp 17bpm; Pulse Ox 100%; ll1 ll1
--- NOTE | 2024-12-02 13:19 | EDPHYS ---
Physician Documentation [facility] Name: Chris Mulligan Age: 59 yrs Sex: Male : 1965 Arrival Date: 12/02/2024 Time: 12:09 Bed 7 Private MD: ED Physician Bharathi Dubon HPI: 12/02 12:39 This 59 yrs old Male presents to ER via EMS with complaints of Near Syncope. 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 States he went inside and was sweating uncontrollably, was very weak, was slow to respond. There were RNs onsite who gave sugar pill and hydration however was concerned so she called EMS. Patient states that now he just feels lightheaded, is nauseated, and has pain in his neck. He states that he has been battling flulike symptoms for the past few days, this morning he took Sudafed and has not eaten anything. Historical: - Allergies: 12:12 No Known Allergies; bp - PMHx: 12:45 Hypertensive disorder; sb4 12:45 Esophageal varicies; sb4 - Immunization history:: Adult Immunizations up to date. - Infectious Disease History:: Denies. - Social history:: Smoking status: Patient denies any tobacco usage or history of. ROS: 12:39 Constitutional: Negative for fever, chills, and weight loss, sb4 12:39 Abdomen/GI: Positive for nausea, 12:39 Neuro: Positive for near syncope, 12:39 All other systems are negative, Exam: 12:41 Constitutional: This is a well developed, well nourished patient who is awake, alert, sb4 and in no acute distress. Head/Face: Normocephalic, atraumatic. Eyes: Extra-ocular motions intact. Periorbital areas with no swelling, redness, or edema. ENT: Mucous membranes moist. Respiratory: No increased work of breathing, no retractions or nasal flaring. Abdomen/GI: Soft, non-tender, no distension. Skin: Warm, dry with normal turgor. Normal color with no rashes, no lesions, and no evidence of cellulitis. 12:41 Cardiovascular: Rate: normal, Rhythm: irregular, Pulses: no pulse deficits are appreciated, Vital Signs: 12:10 BP 137 / 68; Pulse 60; Resp 16; Temp 98; Pulse Ox 100% ; bp 13:13 BP 154 / 79; Pulse 61; Resp 17; Pulse Ox 100% ; ll1 13:42 BP 132 / 94; Pulse 68; Resp 16; Pulse Ox 100% ; bp 13:57 Weight 86.18 kg; sb4 14:09 BP 121 / 68; Pulse 64; Resp 16; Pulse Ox 100% ; bp 14:35 BP 109 / 60; Pulse 67; Resp 16; Pulse Ox 100% ; bp MDM: 12:13 Medical Screening Exam initiated sb4 13:19 Data reviewed: vital signs, nurses notes, EMS record, lab test result(s), EKG, sb4 radiologic studies, I have discussed the patient's presentation/case with the attending Emergency Department Physician;. Historians other than the Patient: Spouse/Significant Other: . Counseling: I had a detailed discussion with the patient and/or guardian regarding the historical points, exam findings, and any diagnostic results supporting the discharge/admit diagnosis, the presence of at least one elevated blood pressure reading (>120/80) during this emergency department visit, lab results, radiology results, the need to transfer to another facility, for higher level of care, [facility] does not immediately have the required specialist. 13:47 ED course: patient requests transfer for neurosurg. patient requests [facility], [facility] they are at ICU capacity, now they request [facility]. 12/02 12:28 Order name: Basic Metabolic Panel; Complete Time: 13:17 4 12/02 12:28 Order name: CBC with Diff; Complete Time: 13:13 4 12/02 12:28 Order name: LFT's; Complete Time: 13:17 4 12/02 12:28 Order name: Magnesium; Complete Time: 13:17 4 12/02 12:28 Order name: NT PRO-BNP; Complete Time: 13:17 4 12/02 12:28 Order name: PT-INR; Complete Time: 13:13 4 12/02 12:28 Order name: Troponin HS; Complete Time: 13:17 4 12/02 12:28 Order name: CT Head C Spine; Complete Time: 13:24 4 04/19 13:08 Order name: RAD; Complete Time: 13:13 EDMS 12/02 12:28 Order name: Cardiac monitoring; Complete Time: 12:29 sb4 12/02 12:28 Order name: EKG - Nurse/Tech; Complete Time: 12:37 sb4 12/02 12:28 Order name: IV Saline Lock; Complete Time: 12:29 sb4 12/02 12:28 Order name: Labs collected and sent; Complete Time: 12:32 sb4 12/02 12:28 Order name: O2 Per Protocol; Complete Time: 12:29 sb4 12/02 12:28 Order name: O2 Sat Monitoring; Complete Time: 12:29 sb4 12/02 13:17 Order name: NPO; Complete Time: 13:23 sb4 EC:38 Rate is 60 beats/min. Rhythm is regular, Normal Sinus Rhythm. OR interval is normal at sb4 194 msec. QRS interval is normal at 102 msec. QT interval is prolonged at 498 msec. Interpreted by me. Reviewed by me. Administered Medications: 12:37 Drug: Ondansetron IVP 4 mg IVP once; over 2 minutes Route: IVP; Site: left antecubital; bp 13:12 Follow up: Response: No adverse reaction ll1 13:33 Drug: Keppra IV 1000 mg IV at calculated rate once Route: IV; Rate: calculated rate; bp Site: left antecubital; 13:42 Follow up: IV Status: Completed infusion bp 13:33 Drug: Labetalol IV 10 mg IV at calculated rate once over 2 mins; For SBP greater than bp 140. Hold for HR less than 60, notify provider. Route: IV; Rate: calculated rate; Infused Over: 2 mins; Site: left antecubital; 13:42 Follow up: IV Status: Completed infusion bp 13:42 Drug: niCARdipine IV 5 mg/hr IV at calculated rate See Administration Instructions; bp (Standard concentration 25 mg / 250 mL NS); Recommended max rate 15 mg/hr; Titrate 2.5 mg/hr as often as every 15 minutes to achieve goal (see titration policy); Goal parameter SBP less than 160 mmHg Route: IV; Rate: calculated rate; Site: right antecubital; 14:01 Follow up: IV Status: Infusion continued upon transfer bp 14:34 Not Given (Physician Discretion): mg IV at per protocol once bp Disposition: 12/03 13:02 Co-signature as Attending Physician, Bharathi Dubon MD I agree with the assessment and raghu plan of care. Disposition Summary: 12/02/24 13:18 Transfer Ordered Notes: Transfer Location: [facility] sb4 Reason: Higher level of care sb4 Condition: Serious sb4 Problem: new sb4 Symptoms: are unchanged sb4 Accepting Physician: Dr. Mary(12/02/24 14:36) bp Diagnosis - Nontraumatic intracerebral hemorrhage, intraventricular sb4 Forms: - Medication Reconciliation Form sb4 - SBAR form sb4 Critical care time excluding procedures: 12/02 13:58 Critical care time: Bedside Care: 20 minutes, Consultation: 10 minutes, Family sb4 Intervention: 5 minutes. Total time: 35 minutes Signatures: Dispatcher [employer] EDMS Bharathi Dubon MD MD cha Peltier, Brian, RN RN Cleo Christian, PA-C PA-C sb4 Yao Betancourt RN ll1 Corrections: (The following items were deleted from the chart) 12:28 12:28 Chest Single View+RAD.RAD.BRZ ordered. EDMS EDMS 12:29 12:29 Head C Spine MPR Wo Con+CT.RAD.BRZ ordered. EDMS EDMS 13:58 13:18 neuro icu sb4 sb4 14:36 13:58 Dr. Mary sb4 bp
--- NOTE | 2024-12-02 13:23 | RAD REPORT ---
EXAMINATION: Head C Spine Mpr Wo Con CLINICAL INDICATION: Male, 59 years old. neck pain;Syncope TECHNIQUE: Axial CT images from the skull base to the vertex without intravenous contrast. Axial CT i mages through the cervical spine were obtained without intravenous contrast. Sagittal and coronal reformatted images were created from the data set. Coronal and sagittal reformatted images were creat ed from the data set. One or more of the following dose reduction techniques were used: Automated exposure control, adjustment of the mA and/or kV according to patient size, and/or iterative reconstr uction. Unless otherwise specified, incidental findings do not require dedicated imaging follow-up. [id number]. COMPARISON: No prior exam. FINDINGS: Head: INTRACRANIAL: Intraventricular hemorrhage present in the bilateral lateral ventricles, foramen of Mon ro, and at the fourth ventricle and upper canal. No hydrocephalus. No mass effect or midline shift. No significant white matter disease. VASCULATURE: No visualized abnormalities in the arteries or dural venous sinuses. SCALP/SKULL: No calvarial fracture identified. No acute soft tissue abnormality. SINUSES: The visualized paranasal sinuses are mostly clear. No significant mastoid fluid. Cervical spine: ALIGNMENT: The cervical spine has normal alignment without scoliosis or spondylolisthesis. BONE: Vertebral body heights are maintained. No aggressive osseous lesions. DEGENERATIVE: Multilevel cervical spondylosis with evidence of bilateral neural foraminal narrowing. No high grade central spinal stenosis. SOFT TISSUE: No significant abnormalities in the soft tissue of the neck. The visualized lung apices are clear. IMPRESSION: Acute intraventricular hemorrhage of uncertain etiology. Acute hemorrhage is present in the lateral v entricles, third ventricle, fourth ventricle, and upper spinal canal. No evidence of overt hydrocephalus. No acute fracture or traumatic malalignment of the cervical spine. THIS REPORT CONTAINS FINDINGS THAT MAY BE CRITICAL TO PATIENT CARE. The emergent findings were commun icated to Dr. Dubon on 12/02/2024 1:06 PM.
[2024-12-02] MEDS ORDERED: LEVETIRACETAM 500 MG/5 ML VIAL IV ONE (13:25)
[2024-12-02] MEDS ORDERED: LABETALOL 20 MG/4ML SYRINGE IV ONE (13:25)
[2024-12-02] MEDS ORDERED: NA CHLORIDE 0.9% 100 ML ONE (13:26)
[2024-12-02] MEDS ORDERED: Nicardipine/NS 25 MG/250 ML KIT IV ONE (13:26)
[2024-12-02 15:02] VITALS: TEMP 98; O2SAT 100
[2024-12-02 15:07] VITALS: BP 109/60
== END 2024-12-02 14:36 | disposition short-term general hospital (02) ==
LOC: ER 12:09
DX: I61.5 Nontraumatic intracerebral hemorrhage, intraventricular (principal); R11.0 Nausea; I10 Essential (primary) hypertension
CPT/HCPCS: 93005; 85025; 80048; 36415; 83735; 85610; 80076; 84484; 83880; 70450; 72125; 71045; J1953; J2405; 96365; 96375; 99285